=== PATIENT | male | born 1960 | race Caucasian/White ===

== ENCOUNTER 2024-03-24 21:20 | Inpatient (IN) | payer MEDICARE, SELFPAY ==
[2024-03-24 18:40] VITALS: BP 176/95
[2024-03-24 19:04] LABS: % Basophils 0.2 % (0-2); % Eosinophils 0.1 % (0-6); % Immature Granulocytes 0.7 % (0-0.5); % Lymphocytes 4.9 % (20.5-51.1); % Monocytes 9.4 % (1.7-9.3); % Neutrophils 84.7 % (42.2-75.2); Absolute Immature Granulocytes 0.1 10^3/uL (0-0.05); Absolute Monocytes 1.8 10^3/uL (0.1-0.6); Absolute Neutrophils 16.3 10^3/uL (1.4-6.5); Hematocrit 46.1 % (39.0-52.0); Hemoglobin 16.9 g/dL (13.0-18.0); Mean Corp Hgb Conc. 36.7 g/dL (33.0-37.0); Mean Corpuscular Hgb 31.5 pg (27.0-31.0); Mean Platelet Volume 11.5 fL (7.4-10.4); Nucleated Red Blood Cells % 0 % (-); Platelet Count 116 10^3/uL (130-400); Red Blood Cell Count 5.36 10^6/uL (4.70-6.10); Red Cell Dist. Width 13.3 % (11.5-14.5); White Blood Cell Count 19.3 10^3/uL (4.8-10.8)
[2024-03-24 19:22] LABS: COVID-19 Antigen Negative (Negative)
[2024-03-24 19:26] LABS: ALT (SGPT) 31 U/L (0-50); AST (SGOT) 98 U/L (17-59); Albumin 4.7 g/dl (3.5-5.0); Alkaline Phosphatase 84 U/L (38-126); Blood Urea Nitrogen 13 mg/dl (9-20); Calcium 9.6 mg/dl (8.4-10.2); Carbon Dioxide 25 mmol/L (22-30); Chloride 99 mmol/L (98-107); Glucose 126 mg/dl (70-99); Potassium 4.4 mmol/L (3.5-5.1); Sodium 135 mmol/L (135-145); Total Bilirubin 3.2 mg/dl (0.2-1.3); Total Protein 7.3 g/dl (6.3-8.2); eGFR > 60.00
[2024-03-24 19:30] LABS: Lipase 1802 U/L (23-300)
[2024-03-24 19:37] LABS: NT-proBNP 1270 pg/ml; Troponin I < 0.012 ng/ml
--- NOTE | 2024-03-24 19:49 | EDRN ---
Pt has been having chest pains that started last night. Pt felt like his esophagus was on fire initially then he sat down and had cold sweats 1-2 hours. Pt was unable to sleep. This morning, pt took some Tums for indigestion and 1 325mg aspirin.
Pt took 2 tylenol in the morning, 2 in the afternoon and pepto tablets. Pt says he laid around, unable to sleep in pain all day. Covid test at home was negative. Pt belching a lot. Nausea, no vomiting. Pain is in epigastric area and radiates
around L side into back. No sob, fever/cough, urinary symptoms, weakness. Pt feels light headed and his legs are 'wobbly.' No appetite. Pt has been sipping on water throughout the day. Pt had similar symptoms last year that went away quickly.
[2024-03-24 20:00] VITALS: BP 136/99
--- NOTE | 2024-03-24 20:09 | ED.GENMED ---
History of Present Illness
General
Chief Complaint: Chest Pain
Source: patient
Exam Limitations: none
Time Seen by Provider: 03/24/24 19:59
History of Present Illness
History of Present Illness:
This is a 64 year old male that comes in with epigastric pain. States that he started with pain last night. States that he has been belching. States that he sat down for a while and he was sweating. Then 1 hour later he felt slightly betted but this
it came back. States that he couldn't sleep all night. States that he has had chills, nausea, loose stool and lightheaded. Denies any fever, chest pain, SOB, vomiting, headache, urinary burning.
Past History
Past History
ED Past Medical History: None; Negative Asthma, HTN, Hypercholesterolemia or NIDDM
ED Past Surgical History: Orthopedic (Right knee surgery, ) and Other (Skin graft left ankle)
Social History
Tobacco: Former smoker
Alcohol: Daily (Beer 6 pack or more)
Personal:
Living: with family
Review of Systems
Review of Systems
All Other Systems: ROS reviewed and negative except as documented in HPI and ROS
Constitutional: Reports night sweats and chills
EENT: Reports no symptoms
Respiratory: Reports no symptoms; Denies cough or trouble breathing
Cardiac: Reports no symptoms; Denies chest pain
ABD/GI: Reports abdominal pain and nausea; Denies vomiting or diarrhea
: Reports no symptoms; Denies dysuria, frequency or urgency
Musculoskeletal: Reports no symptoms
Skin: Reports no symptoms
Neurological: Reports other (Lightheaded); Denies dizzy or headache
Psychiatric: Reports no symptoms
Phy Exam
General Physical Exam
General Presentation: no apparent distress
General age: appears stated age
General Skin: warm and dry
General Habitus: normal
General Mental: alert
General Hydration: appears well hydrated
ENT Exam
ENT Exam: TM's normal, pharynx normal and neck supple
Eye Exam
Eye Exam: EOMI
Cardiovascular Exam
Cardiovascular Exam: regular rate/rhythm, no edema and normal peripheral pulses
Pulmonary Exam
Pulmonary Exam: lungs clear, no respiratory distress, no rales, chest non tender, no crackles, no rhonchi, no wheezing and no cough
Gastrointestinal Exam
Gastrointestinal Exam: normal bowel sounds, soft, no organomegaly, no pulsatile mass, non distended and tender (Epigastric area with palpation)
Musculoskeletal Exam
Musculoskeletal Exam: full ROM
Skin Exam
Skin Exam: normal color, warm/dry, no rash and no petechia
Psychiatric Exam
Psychiatric Exam: normal mood/affect
Scores
Heart Score for Chest Pain Patients
STEMI patient?: Not applicable
Course
Orders/Labs/Results
Orders:
Orders
03/24/24 18:44
CR Chest - 2 Views Urgent
Comment:
Reason For Exam: chest pain
03/24/24 18:46
ECG [Electrocardiogram (*1)] Urgent
Reason for Study: Chest Pain
EKG- Treatment ONCE
03/24/24 18:49
Alcohol Urgent
COVID-19 Antigen Urgent
Source: Nasal Swab
Complete Blood Count/With Diff Urgent
Comprehensive Metabolic Panel Urgent
Lipase Urgent
NT-proBNP Urgent
Troponin I Urgent
03/24/24 20:08
0.9% Sodium Chloride 1000 ml [Nss] 1,000 ml IV BOLUS
HYDROmorphone [Dilaudid] 0.5 mg IV NOW STA
Ondansetron Injectable [Zofran] 4 mg IV NOW STA
03/24/24 20:17
CT Abd/pelvis W Iv Cont Urgent
Comment:
Reason For Exam: Upper abd pain
03/24/24 20:18
Piperacillin/Tazo 3.375 Gram [Zosyn] 3.375 gram in 50 ml IV NOW
03/24/24 20:39
Add On- LAB Urgent
Tests Added?: alcohol level
03/24/24 20:48
Admit/Transfer Patient As Directed
Co-Sign Provider:
Level of Care: Inpatient admission
Assign to:: Telemetry
Physician / Group: jonathan young
Diagnosis: actue pancreatitis, alcohol abuse , thrombocytopenia
Reason for Telemetry: Arrhythmia
Date to Stop Telemetry: 03/27/24
Time to Stop Telemetry: 11:00
Reason for Hospitalization: actue pancreatitis, alcohol abuse , thrombocytopenia
Expected length of stay greater than two midnights?: Yes
ELOS- Estimated Length of Stay in days: 5
I certify the patient meets the requirements for IP care: Yes
03/24/24 20:49
Code Status As Directed
Resuscitation Status: Full Code
03/24/24 20:51
PRN Pain Medication Management As Directed
May give lesser potent ordered pain med per pt: Yes
preference::
Protocol:: Medication orders for pain may be administered in a
manner that supports deferring to patient preference
when the pt is:
- Requesting an ordered lesser potent pain medication.
Least to most potent pain medications are defined
as: acetaminophen < NSAID < tramadol < opioids
(morphine, oxycodone, hydromorphone).
- Requesting a lesser dose of the same medication IF
ORDERED.
- Requesting a less intrusive route of administration
if both routes are prescribed by the provider (PO <
IV).
03/24/24 21:42
Urinalysis Routine
Date Specimen was Collected: 03/24/24
Time Specimen was Collected: 21:40
Urine Drug Abuse Screen Routine
Date Specimen was Collected: 03/24/24
Time Specimen was Collected: 21:40
03/24/24 22:00
Flush (0.9% Sodium Chloride) [Flush (Nss)] See Dose Instructions IV PER PROTOCOL
03/24/24 22:46
0.9% Sodium Chloride 1000 ml [Nss] 1,000 ml IV 125 mls/hr
0.9% Sodium Chloride [Nss (Preservative Free)] See Protocol IV PRN PRN
FOLic ACID [Folvite] 1 mg 0.9% Sodium Chloride 50 ml [Nss] 50 ml IV DAILYPRN
Lorazepam [Ativan] 1 mg IV Q1HPRN PRN
Lorazepam [Ativan] 1 mg PO Q2HPRN PRN
Lorazepam [Ativan] 2 mg IV Q1HPRN PRN
03/24/24 22:46
Case Management Consult Once
Case Management Consult: Other
Comment: Substance abuse counseling
DIETARY CONSULT Routine
Reason for Consult: Nutrition support, possible refeeding guidelines
Alcohol Urgent
B-Hydroxybutyrate Urgent
GGTP Urgent
Magnesium Urgent
PTT Urgent
Phosphorus Urgent
Prothrombin Time Urgent
Activity As Directed
Activity Level: As Tolerated
Intake/ Output As Directed
Frequency: Per unit guidelines
MSAS SCORE As Directed
MSAS Score 0-4: Repeat MSAS every 2 hours until 0-4 for three consecutive assessments, then every 4 hours x 48
hours.
MSAS Score 5-7: For MILD withdrawl symptoms. Repeat MSAS and RASS every 2 hours
MSAS Score 8-11: For MODERATE withdrawal symptoms. Repeat MSAS and RASS every 1 hour. Consider ICU or IMU
level of care.
MSAS Score > 11: For SEVERE withdrawal symptoms. Repeat MSAS and RASS every 1 hour. Notify provider, consider
ICU level of care.
MSAS Additional Instructions: If no improvement or no decrease in score from severe to moderate within 12
hours, consult psychiatry
MSAS Notify Provider: Notify provider if patient requires more than 10 mg of Lorazepam in eight hour period.
Vital Signs As Directed
Frequency: Per unit guidelines
Ot Eval And Treat Routine
Pt Eval And Treat Routine
Activity Level: As Tolerated
DX Deep Vein Thrombosis Video Routine
03/25/24 00:00
Thiamine Injection 200 mg IV Q8
03/25/24 07:36
Complete Blood Count/With Diff IN AM
Comprehensive Metabolic Panel IN AM
03/25/24 08:00
FOLic ACID [Folvite] 1 mg PO DAILY
Pantoprazole [Protonix IV] 40 mg IV DAILY
03/25/24 18:00
Enoxaparin Sodium [Lovenox] 40 mg SC QPM
03/26/24 06:52
Complete Blood Count/With Diff IN AM
Comprehensive Metabolic Panel IN AM
03/27/24 06:00
Complete Blood Count/With Diff IN AM
Comprehensive Metabolic Panel IN AM
03/27/24 11:00
DC Protocol for Telemetry ONCE
03/28/24 06:00
Complete Blood Count/With Diff IN AM
Comprehensive Metabolic Panel IN AM
03/28/24 08:00
Thiamine HCl [Vitamin B1] 100 mg PO BID
Abnormal Lab Results
03/24/24
18:49
WBC 19.3 H 10^3/uL
(4.8-10.8)
MCH 31.5 H pg
(27.0-31.0)
Plt Count 116 L 10^3/uL
(130-400)
MPV 11.5 H fL
(7.4-10.4)
Abs Immat Gran (auto) 0.1 H 10^3/uL
(0-0.05)
Absolute Neuts (auto) 16.3 H 10^3/uL
(1.4-6.5)
Absolute Lymphs (auto) 1.0 L 10^3/uL
(1.2-3.4)
Absolute Monos (auto) 1.8 H 10^3/uL
(0.1-0.6)
Immature Gran % 0.7 H %
(0-0.5)
Neutrophils % 84.7 H %
(42.2-75.2)
Lymphocytes % 4.9 L %
(20.5-51.1)
Monocytes % 9.4 H %
(1.7-9.3)
Glucose 126 H mg/dl
(70-99)
Total Bilirubin 3.2 H mg/dl
(0.2-1.3)
AST 98 H U/L
(17-59)
Lipase 1802 H* U/L
(23-300)
03/24/24 18:49
03/24/24 18:49
Leukocytosis, Thrombocytopenia, hyperglycemia, Total stiven elevated, AST elevation. Lipase elevated (pancreatitis), Troponin <0.012, Pro-BNP 1270, COVID negative. Alcohol none detected. Urine Drug negative.
Vital Signs
Initial and Last Documented VS:
Initial Vital Signs
Temp Pulse Resp BP Pulse Ox
100.0 F 97 18 176/95 98
03/24/24 18:40 03/24/24 18:40 03/24/24 18:40 03/24/24 18:40 03/24/24 18:40
Last Documented Vital Signs
Temp Pulse Resp BP Pulse Ox
98.9 F 70 18 127/79 97
03/26/24 16:21 03/26/24 16:21 03/26/24 16:21 03/26/24 16:21 03/26/24 16:21
MDM/Problems Addressed
Differential Diagnosis Includes:
Gastritis, Pancreaetitis,
MDM/Problems Addressed:
This is a 64 year old male that comes in with c/o upper abd pain. States that this started last night. States that he has had chills, sweating, nausea and light headache.
Will get labs, Ultrasound, IV fluids and pain medication. Explained to patient that he has pancreatitis and will be admitted.
Chronic conditions affecting care:
NA
Acute Exacerbation and/or Progression of Chronic Illness:
NA
*Radiology
Radiology exam reviewed: radiology read reviewed (CT-There is a complex predominantly low density (35 hounsfield units) mass at the posterior aspect of the tail of the pancreas which measures approximately 5.5 X 9.5 X 8.0cm in A: transverse and
craniocaudal dimensions respectively. Differential diagnosis for this mass included a complex ), all reviewed NAD by ED Provider (CT cont- complex pseudocyst and mucinous neoplasm. MRI is recommended for further evaluation. There is inflammatoary
stranding/edema around the tail of the pancreas consistent with acute pancreatitis. There is a 5.5cm infrarenal abdominal aortic aneurysm with eccentric thrombus which terminates at ) and other (CT cont- at the aortic bifurcation. )
*Pulse Oximetry
Patient hypoxic: no
*EKG
Interpreted by ED Provider?: Yes
Heart Rate: 86
Rate: normal
Rhythm: sinus
[place]: left axis deviation
Interval: normal interval
QRS Pattern: normal QRS
Ischemia: no ischemia
*Dryer Operator Interpretation
Rate: normal
Heart Rate: 96
Rhythm: sinus
*Critical Care Note
Total Time (30-74mins, 75-104mins- exclusive of procedures): Not Applicable
ED Attending Note
-
Portions of this chart may have been created with voice recognition software.� Occasional wrong word or��sound alike� substitutions may have occurred due to the inherent limitations of voice recognition software.
Discharge Plan
Departure
Patient Disposition: Admit
Date of Disposition: 03/24/24
Time of Disposition: 20:21
Admit to: Med/Surg
Presentation/result/management discussed w/ accepting MD/DO: Hospitalist
Patient with high blood pressure during this ER visit?: Yes
Covid-19: Negative COVID-19
Discharge Problem:
Acute pancreatitis
Interventions
Interventions:
*Risk Screen - Suicide Last Done: 03/24/24 18:40
*General Assessment Last Done: 03/24/24 21:00
*Neglect/Abuse Screening Last Done: 03/24/24 18:40
ED- Fall Risk Assessment Last Done: 03/24/24 22:41
*ED COVID-19 Vaccine History Last Done: 03/24/24 19:49
*Nursing Disposition Last Done: 03/24/24 22:41
ED- Cardiac Assessment Last Done: 03/24/24 20:01
Discharge Date and Time
Discharge Date/Time: 03/24/24 22:41
[2024-03-24] MEDS: DILAUDID 0.5 MG IV (20:22)
[2024-03-24] MEDS: NSS 1000 IV ×2 (20:23→23:29)
[2024-03-24] MEDS: ZOFRAN 4 MG IV (20:23)
[2024-03-24] MEDS: ZOSYN 50 IV (20:25)
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
[2024-03-24 21:11] LABS: Alcohol None Detected
[2024-03-24 21:35] VITALS: BP 149/97
[2024-03-24 22:00] VITALS: BP 162/86
[2024-03-24 22:02] LABS: Amphetamines Negative (Negative); Barbiturates Negative (Negative); Benzodiazepines Negative (Negative); Buprenorphine Negative (Negative); Cocaine Negative (Negative); Marijuana Negative (Negative); Methadone Negative (Negative); Methamphetamines Negative (Negative); Opiates Negative (Negative); Phencyclidine Negative (Negative); Tricyclic Antidepressants Negative (Negative)
[2024-03-24 22:18] LABS: Urine Albumin Trace (Neg - Trace); Urine Bilirubin Negative (Negative); Urine Character Clear (Clear); Urine Color Yellow; Urine Glucose Negative (Negative); Urine Ketone Trace (Negative); Urine Leukocyte Negative (Negative); Urine Nitrite Negative (Negative); Urine Occult Blood 4+ (Negative); Urine Urobilinogen Negative (Neg - 1+)
[2024-03-24 22:33] LABS: Urine Mucus Moderate; Urine White Cell 0-2 /HPF (0-5)
--- NOTE | 2024-03-24 22:38 | W.PN.UPDATE ---
Update Note
Progress Note Update
This is an addendum to the H&P written by Debbie Maria on 03/24/2024. Patient seen and examined independently with ELECTRICAL LABORATORY TECHNICIAN.
64-year-old male past medical history of alcohol use disorder here with alcoholic pancreatitis. Lipase of 1800. Leukocytosis on labs. CT abdomen pelvis shows complex mass at the posterior aspect of the tail the pancreas which could be complex
pseudocyst versus mucinous neoplasm. N.p.o., IV fluids, Zofran, Dilaudid, Protonix. GI consulted. Thiamine and folate, alcohol withdrawal protocol.
[2024-03-24 23:11] VITALS: BP 179/107; BMI 30.3
[2024-03-24] MEDS: THIAMINE INJECTION 200 MG IV (23:29)
[2024-03-25] VITALS (9 sets, daily range): BP systolic 131–153; BP diastolic 78–92; PULSE 85; O2SAT 96
[2024-03-25] MEDS: DILAUDID 0.25 MG IV ×3 (00:19→20:44)
--- NOTE | 2024-03-25 00:30 | PTCARENOTE ---
Receive pt from ER. Pt alert oriented X3, calm in no distress. Pt assist X1 to his bed, steady on his feet. Pt oriented to the room, call romero within reach. Pt reports tenderness in the left epigastric area and left upper quadrant. The pain is 5/10.
Pt on NSR on telemonitor. BP high at the [id number]=404/107, HR=86, T=99.4, SpO2=99% on RA. MSAS=3, pt reports that his last drink was yesterday. Pt denies any alcohol withdraw in the past. Pt is strict NPO except for meds. IVFs infusing as per
order. TRUST VAULT CUSTODIAN (Radha) made aware about pt's pain, ordered Dilaudid 0.25mg X1. Dilaudid given as per order. Pt resting comfortably in his bed. BP rzvisiohj=313/92, HR=91. Will continue to monitor the pt.
[2024-03-25 00:33] LABS: INR 1.21; PT 15.1 Sec (11.4-14.6)
[2024-03-25 00:34] LABS: APTT 32.5 Sec (23.4-35.0)
[2024-03-25 00:49] LABS: Magnesium 1.7 mg/dl (1.6-2.3); Phosphorus 3.2 mg/dl (2.5-4.5)
[2024-03-25 01:04] LABS: GGTP 48 U/L (15-73)
[2024-03-25 01:06] LABS: Alcohol None Detected
[2024-03-25 01:11] LABS: B-Hydroxybutyrate 0.11 mmol/L (0.02-0.27)
[2024-03-25] MEDS: NSS 1000 IV (06:29)
[2024-03-25 08:34] LABS: ALT (SGPT) 21 U/L (0-50); AST (SGOT) 48 U/L (17-59); Albumin 3.4 g/dl (3.5-5.0); Alkaline Phosphatase 64 U/L (38-126); Blood Urea Nitrogen 13 mg/dl (9-20); Calcium 8.4 mg/dl (8.4-10.2); Carbon Dioxide 23 mmol/L (22-30); Chloride 104 mmol/L (98-107); Estimated Creatinine Clearance > 125 ml/min; Glucose 108 mg/dl (70-99); Potassium 3.8 mmol/L (3.5-5.1); Sodium 137 mmol/L (135-145); Total Protein 5.8 g/dl (6.3-8.2); eGFR > 60.00
[2024-03-25 08:37] LABS: % Basophils 0.1 % (0-2); % Eosinophils 0.3 % (0-6); % Immature Granulocytes 0.5 % (0-0.5); % Lymphocytes 6.7 % (20.5-51.1); % Monocytes 12.1 % (1.7-9.3); % Neutrophils 80.3 % (42.2-75.2); Absolute Immature Granulocytes 0.1 10^3/uL (0-0.05); Absolute Monocytes 1.8 10^3/uL (0.1-0.6); Absolute Neutrophils 11.9 10^3/uL (1.4-6.5); Hematocrit 42.2 % (39.0-52.0); Mean Corp Hgb Conc. 35.5 g/dL (33.0-37.0); Mean Corpuscular Hgb 31.7 pg (27.0-31.0); Mean Corpuscular Volume 89.2 fL (80.0-94.0); Nucleated Red Blood Cells % 0 % (-); Red Blood Cell Count 4.73 10^6/uL (4.70-6.10); Red Cell Dist. Width 13.4 % (11.5-14.5); White Blood Cell Count 14.8 10^3/uL (4.8-10.8)
[2024-03-25] MEDS: NSS (PRESERVATIVE FREE) 10 ML IV (08:47)
[2024-03-25] MEDS: FLUSH (NSS) 1 FLUSH IV ×3 (08:47→16:35)
[2024-03-25] MEDS: PROTONIX IV 40 MG IV (08:47)
[2024-03-25] MEDS: FOLVITE 1 MG PO (08:47)
[2024-03-25] MEDS: THIAMINE INJECTION 200 MG IV ×2 (08:47→16:35)
--- NOTE | 2024-03-25 08:52 | W.PN.UPDATE ---
Update Note
Progress Note Update
CT of the abdomen and pelvis was reviewed. Patient currently admitted with alcohol pancreatitis. On CT scan he has an infrarenal abdominal aortic aneurysm. Also has a cystic lesion involving the pancreas which is either a pseudocyst or mucinous
neoplasm. He is currently being treated for pancreatitis and workup is ongoing for this mass.
He is a stent graft candidate anatomically. I have asked that the medical team obtain a CT angiogram of the abdomen and pelvis for possible surgical planning. We can then continue surgical discussions as an outpatient once he has recovered from
this episode and we have a plan for his pancreas.
Please call with additional questions or concerns.
Patient should follow-up with me in the office after discharge for his AAA.
Weston Fabian III, MD
[facility] Vascular Surgery
[phone] (bljn)
[2024-03-25] MEDS: ASPIR LOW (ENTERIC COATED) 81 MG PO (09:09)
--- NOTE | 2024-03-25 11:27 | W.PN.HOSP.TC ---
Today's Communication/Plan
-
ivf
mri abd w/w/out contrast
pain control
asa 81
ct angio a/p
monitor cbc
gi, vascular recs
Assessment / Plan
Assessment / Plan
Physical Exam
General: Conversant; No Fever or Chills
HEENT: NormoCephalic, Anicteric, Moist mucous membranes, PERRLA, [place] Conjunctivae and No Ptosis
Respiratory: Clear; No Wheezes, Rales or Rhonchi
Cardiac: S1/S2 and Regular Rhythm; No Murmur, Rub, Gallop or Peripheral Edema
GI: Soft, Normal Bowel Sounds, Tender (Left upper quadrant), Distended and No Hepatosplenomegaly
Rectal: Deferred by Provider
Genito-urinary: Deferred by me
Musculoskeletal: No Clubbing and No Edema
Skin: Warm and Dry; No Rash or Jaundice
Neuro: AO x 3, No Motor Deficits, Nonfocal/grossly intact, Cranial Nerves Intact and No Sensory Deficits; No Slurred Speech, Facial Droop, Tremors or Sedated
Psych: Calm
#Acute pancreatitis 2/2 alcohol abuse
#SIRS-most likely secondary to noninfectious etiology
White count trending down, monitor fever curve
Continue IV fluids
Pain control
Continue IV Zofran
NPO
MRI abdomen ordered
Alcohol cessation
#Hyperbilirubinemia
� monitor
-add on direct bili
-mri abd
#Pancreatic complex pseudocyst and mucinous neoplasm.
-MRI abdomen
#5.5 cm infrarenal abdominal aortic aneurysm with eccentric thrombus which terminates at the aortic bifurcation
-vascular consulted
-asa 81 for thrombus
-stent graft candidate anatomically
-CT Angio A/P for surgical planning
#Alcohol abuse
Check alcohol level
-MSAS screen with protocol
--IV thiamine, IV folate
-Follow CMP
#Thrombocytopenia likely secondary to alcohol abuse
PLT 116 no prior labs
#Former smoker
40-year 1 pack a day quit October 09, 2022
DVT prophylaxis
Subcu Lovenox
Full code
Anticipated Discharge: > 48 hours
Subjective/Interval History
-
Date of Service: March 25, 2024
Still in pain, mild epigastric
Objective Data
-
Labs:
Laboratory Results
03/25/24 03/25/24
00:14 07:36
WBC 14.8 H
Hgb 15.0
Hct 42.2
Plt Count
PT 15.1 H
INR 1.21
APTT 32.5
Sodium 137
Potassium 3.8
Chloride 104
Carbon Dioxide 23
BUN 13
Creatinine 0.6 L
Glucose 108 H
Calcium 8.4
Total Bilirubin 2.0 H D
AST 48
ALT 21
Alkaline Phosphatase 64
Vital Signs:
Vital Signs
Temp Pulse Resp BP Pulse Ox
98.2 F 86 20 147/86 95
03/25/24 07:30 03/25/24 07:30 03/25/24 07:30 03/25/24 07:30 03/25/24 08:44
I&O
03/24/24 03/25/24 03/26/24
06:59 06:59 06:59
Intake Total 1000 / 1000
Output Total 1100 / 1100
Balance -100 / -100
Review of Systems
-
History Source: Patient
All other systems: Not reviewed unless documented
Data Reviewed
-
Diagnostic Radiology: Image personally visualized and interpreted and Report Reviewed by me
CT Scan: Image personally visualized and interpreted and Report Reviewed by me
Labs: Labs Reviewed by me
[2024-03-25 12:29] LABS: Direct Bilirubin 0.3 mg/dl (0.0-0.4)
[2024-03-25] MEDS: LR 1000 IV ×2 (12:34→21:49)
--- NOTE | 2024-03-25 13:03 | CON.GI ---
Consultation
-
Date/Time Consultation Requested: 03/25/2024
Date/Time Consultation Performed: 03/25/2024
Performing Provider: Iban Xie
Reason for Consultation: acute pancreatitis, lesion in tail of pancreas
Medical History
Chief Complaint / HPI
Chief Complaint: acute pancreatitis, lesion in tail of pancreas
History of Present Illness:
Patient is a 64-year-old male presenting with acute onset epigastric pain and associated nausea. He has history of alcohol abuse drinking 6 packs of beer on almost daily basis sometimes also drinking about 2 shots of whiskey/vodka. He denies
vomiting. Never had history of pancreatitis. Admits to [id number] history of smoking but quit on 09/2023. No prior history of jaundice.
Past Medical History
Past Medical History: Other
Past Surgical History: Other
Social History
Tobacco: Former Smoker
Alcohol: Daily
Allergies / Home Medications
Allergy/AdvReac Type Severity Reaction Status Date / Time
Penicillins Allergy Unknown Verified 03/24/24 18:40
�Medication �Instructions �Recorded
No Meds [No Current Medications] 03/24/24
Review of Systems
Vital Signs
Temp Pulse Resp BP Pulse Ox
98.5 F 81 21 148/84 97
03/25/24 11:00 03/25/24 11:00 03/25/24 11:00 03/25/24 11:00 03/25/24 11:00
Physical Exam
Exam
General: Well Developed and Well Nourished
HEENT: Normocephalic
Respiratory: Clear
Cardiac: S1/S2
GI: Soft, Non Distended and Tender
Results
WBC 14.8 10^3/uL (4.8-10.8) H 03/25/24 07:36
Hgb 15.0 g/dL (13.0-18.0) 03/25/24 07:36
Hct 42.2 % (39.0-52.0) 03/25/24 07:36
MCV 89.2 fL (80.0-94.0) 03/25/24 07:36
Plt Count 10^3/uL (130-400) 03/25/24 07:36
Absolute Neuts (auto) 11.9 10^3/uL (1.4-6.5) H 03/25/24 07:36
PT 15.1 Sec (11.4-14.6) H 03/25/24 00:14
INR 1.21 03/25/24 00:14
APTT 32.5 Sec (23.4-35.0) 03/25/24 00:14
Sodium 137 mmol/L (135-145) 03/25/24 07:36
Potassium 3.8 mmol/L (3.5-5.1) 03/25/24 07:36
Chloride 104 mmol/L (98-107) 03/25/24 07:36
Carbon Dioxide 23 mmol/L (22-30) 03/25/24 07:36
BUN 13 mg/dl (9-20) 03/25/24 07:36
Creatinine 0.6 mg/dL (0.7-1.3) L 03/25/24 07:36
Calcium 8.4 mg/dl (8.4-10.2) 03/25/24 07:36
Total Bilirubin 2.0 mg/dl (0.2-1.3) H D 03/25/24 07:36
AST 48 U/L (17-59) 03/25/24 07:36
ALT 21 U/L (0-50) 03/25/24 07:36
Alkaline Phosphatase 64 U/L (38-126) 03/25/24 07:36
Lipase 1802 U/L (23-300) H* 03/24/24 18:49
Diagnostic Image Results:
Prior GI Procedures:
EGD:
Colonoscopy:
Assessment / Plan
-
64-year-old male presenting with alcohol induced acute pancreatitis with abnormal finding on abdominal CT.
Impression / Rec:
1. Acute pancreatitis with lesion seen in TOP - Patient was admitted with acute onset epigastric abdominal pain with associated nausea and found to have lipase of 1800s and CT demonstrating stranding around the tail of pancreas consistent with
alcohol induced pancreatitis. Patient drinks 6 packs of beer almost daily and sometimes hard liquor as well. [id number] of smoking history although he quit on 09/2023. Denies prior history of pancreatitis or jaundice. CT also showed complex
fluid density mass in the tail of pancreas measuring 5.5 x 9.5 x [address] was reviewed by me. This may be a complex pseudocyst versus cystic lesion. Agree with further evaluation with MRI. Pending MRI results, may need further evaluation
with EUS. CLD for now.
Total Time Spent with Patient (in minutes): 55
-
-
Thank you for consultation and allowing me to participate in the patient's care. Please call the international tax manager GI physician during the after hours with any questions or concerns.
[2024-03-25 13:06] LABS: Hematocrit 39.6 % (39.0-52.0); Hemoglobin 14.3 g/dL (13.0-18.0); Mean Corp Hgb Conc. 36.1 g/dL (33.0-37.0); Mean Corpuscular Hgb 31.6 pg (27.0-31.0); Mean Corpuscular Volume 87.6 fL (80.0-94.0); Red Blood Cell Count 4.52 10^6/uL (4.70-6.10); Red Cell Dist. Width 13.8 % (11.5-14.5); White Blood Cell Count 15.5 10^3/uL (4.8-10.8)
[2024-03-25 13:17] LABS: Mean Platelet Volume 11.6 fL (7.4-10.4); Platelet Count 58 10^3/uL (130-400)
--- NOTE | 2024-03-25 16:32 | PTCARENOTE ---
Pt AAO x3,WEIR well, OOB in room, lara well. VSS. Telemetry:NSR. On room air- pulse ox 99%, no SOB noted. Abd large, sl tender Lt med/lower abd; BS (+). Lara clear liquid diet. Voiding in BR without difficulty. IVF's RL @ 150 ml/hr infusing via
Rt upper forearm site without sx of infiltration. Resting in bed at present, no c/o. Will continue to monitor.
[2024-03-25] MEDS: LOVENOX 40 MG SC (17:28)
[2024-03-26] MEDS: THIAMINE INJECTION 200 MG IV ×3 (01:15→17:06)
[2024-03-26 03:54] VITALS: BP 151/80
[2024-03-26] MEDS: LR 1000 IV ×4 (05:27→22:00)
[2024-03-26 08:23] VITALS: BP 132/83
[2024-03-26 08:33] LABS: % Basophils 0.2 % (0-2); % Immature Granulocytes 0.6 % (0-0.5); % Lymphocytes 9.9 % (20.5-51.1); % Monocytes 12.9 % (1.7-9.3); % Neutrophils 75.4 % (42.2-75.2); Absolute Eosinophils 0.1 10^3/uL (0-0.7); Absolute Immature Granulocytes 0.1 10^3/uL (0-0.05); Absolute Lymphocytes 1.1 10^3/uL (1.2-3.4); Absolute Monocytes 1.4 10^3/uL (0.1-0.6); Absolute Neutrophils 8.2 10^3/uL (1.4-6.5); Hematocrit 34.5 % (39.0-52.0); Hemoglobin 12.4 g/dL (13.0-18.0); Mean Corp Hgb Conc. 35.9 g/dL (33.0-37.0); Mean Corpuscular Hgb 31.9 pg (27.0-31.0); Mean Corpuscular Volume 88.7 fL (80.0-94.0); Mean Platelet Volume 12.1 fL (7.4-10.4); Nucleated Red Blood Cells % 0 % (-); Platelet Count 58 10^3/uL (130-400); Red Blood Cell Count 3.89 10^6/uL (4.70-6.10); Red Cell Dist. Width 13.8 % (11.5-14.5); White Blood Cell Count 10.9 10^3/uL (4.8-10.8)
[2024-03-26 08:38] LABS: ALT (SGPT) 14 U/L (0-50); AST (SGOT) 22 U/L (17-59); Albumin 2.8 g/dl (3.5-5.0); Alkaline Phosphatase 70 U/L (38-126); Blood Urea Nitrogen 10 mg/dl (9-20); Calcium 8.2 mg/dl (8.4-10.2); Carbon Dioxide 25 mmol/L (22-30); Chloride 104 mmol/L (98-107); Estimated Creatinine Clearance > 125 ml/min; Glucose 93 mg/dl (70-99); Potassium 3.4 mmol/L (3.5-5.1); Sodium 135 mmol/L (135-145); Total Bilirubin 1.3 mg/dl (0.2-1.3); eGFR > 60.00
[2024-03-26] MEDS: PROTONIX IV 40 MG IV (08:47)
[2024-03-26] MEDS: NSS (PRESERVATIVE FREE) 10 ML IV (08:47)
[2024-03-26] MEDS: ASPIR LOW (ENTERIC COATED) 81 MG PO (08:48)
[2024-03-26] MEDS: FOLVITE 1 MG PO (08:48)
[2024-03-26 12:00] VITALS: BP 127/76
--- NOTE | 2024-03-26 12:00 | W.PN.HOSP.TC ---
Today's Communication/Plan
-
adv to full liquid diet
Assessment / Plan
Assessment / Plan
Physical Exam
General: Conversant; No Fever or Chills
HEENT: NormoCephalic, Anicteric, Moist mucous membranes, PERRLA, [place] Conjunctivae and No Ptosis
Respiratory: Clear; No Wheezes, Rales or Rhonchi
Cardiac: S1/S2 and Regular Rhythm; No Murmur, Rub, Gallop or Peripheral Edema
GI: Soft, Normal Bowel Sounds, Tender (Left upper quadrant), Distended and No Hepatosplenomegaly
Rectal: Deferred by Provider
Genito-urinary: Deferred by me
Musculoskeletal: No Clubbing and No Edema
Skin: Warm and Dry; No Rash or Jaundice
Neuro: AO x 3, No Motor Deficits, Nonfocal/grossly intact, Cranial Nerves Intact and No Sensory Deficits; No Slurred Speech, Facial Droop, Tremors or Sedated
Psych: Calm
#Acute pancreatitis 2/2 alcohol abuse
#Necrotizing pancreatitis
#10 Centimeter acute necrotic collection posterior to the pancreatic body and tail
#SIRS-most likely secondary to noninfectious etiology
White count trending down, monitor fever curve
Continue IV fluids
Pain control
Continue IV Zofran
Tolerating clear liquids, advance to full liquid diet
MRI abdomen ordered
Alcohol cessation
#Hyperbilirubinemia
� monitor
-resolving
#5.5 cm infrarenal abdominal aortic aneurysm with eccentric thrombus which terminates at the aortic bifurcation
-vascular consulted
-asa 81 for thrombus
-stent graft candidate anatomically
-CT Angio A/P for surgical planning performed
� Follow-up vascular outpatient
#Hypokalemia
� Monitor and replete
#Alcohol abuse
Check alcohol level
-MSAS screen with protocol
--IV thiamine, IV folate
-Follow CMP
#Thrombocytopenia likely secondary to alcohol abuse
-ctm
#Former smoker
40-year 1 pack a day quit October 09, 2022
DVT prophylaxis
Subcu Lovenox
Full code
Anticipated Discharge: 24 - 48 hours
Subjective/Interval History
-
Date of Service: March 26, 2024
Pain is improved, tolerating clear liquid diet well
Objective Data
-
Labs:
Laboratory Results
03/26/24
06:52
WBC 10.9 H
Hgb 12.4 L
Hct 34.5 L
Plt Count 58 L
Sodium 135
Potassium 3.4 L
Chloride 104
Carbon Dioxide 25
BUN 10
Creatinine 0.7
Glucose 93
Calcium 8.2 L
Total Bilirubin 1.3
AST 22
ALT 14
Alkaline Phosphatase 70
Vital Signs:
Vital Signs
Temp Pulse Resp BP Pulse Ox
98.2 F 76 18 132/83 98
03/26/24 08:23 03/26/24 08:23 03/26/24 08:23 03/26/24 08:23 03/26/24 08:23
I&O
03/25/24 03/26/24 03/27/24
06:59 06:59 06:59
Intake Total 1000 / 1000 4360 / 4360
Output Total 1100 / 1100 980 / 980
Balance -100 / -100 3380 / 3380
Review of Systems
-
History Source: Patient
All other systems: Not reviewed unless documented
Data Reviewed
-
Diagnostic Radiology: Image personally visualized and interpreted and Report Reviewed by me
CT Scan: Image personally visualized and interpreted and Report Reviewed by me
Labs: Labs Reviewed by me
--- NOTE | 2024-03-26 12:21 | CM ---
CM reviewed patient's chart. Spoke with patient at bedside. CM introduced self and role. CM consult placed for BCARES. CM explained what BCARES was. CM explained what BCARES was. Patient stated that he was going to quit on his own, so he didn't need
to talk to 'nobody'.
PCP: Dr. Amish Jolley
Pharmacy: [facility]
Living situation: Patient lives with his . He lives in a split-level home. 10 steps to enter. He has several friends for support.
Finances: Patient denies any social insecurities. He is able to afford her housing, clothing, medications, food, utilities and transportation. He is retired.
DME/Ambulation: Patient ambulates independently. He owns, but does not utilize: a walker, cane and wheelchair.
Transportation: Patient's will provide transport once he is discharged. Patient does drive.
Agreeable to home health care?: Yes, if needed.
ANTICIPATED DISCHARGE DISPOSITION:
Return to home with , once medically cleared.
CM will continue to follow case and available for further assistance.
--- NOTE | 2024-03-26 12:52 | W.PN.GI.CBS2 ---
Today's Communication / Plan
-
advance diet, continue with supportive mx, will set up GI f/u, GI s/o.
Assessment / Plan
-
64-year-old male presenting with alcohol induced acute pancreatitis with abnormal finding on abdominal CT.
Impression / Rec:
1. Acute pancreatitis with lesion seen in TOP - Patient was admitted with acute onset epigastric abdominal pain with associated nausea and found to have lipase of 1800s and CT demonstrating stranding around the tail of pancreas consistent with
alcohol induced pancreatitis. Patient drinks 6 packs of beer almost daily and sometimes hard liquor as well. [id number] of smoking history although he quit on 09/2023. Denies prior history of pancreatitis or jaundice. CT also showed complex
fluid density mass in the tail of pancreas measuring 5.5 x 9.5 x 8[address] was reviewed by me. This may be a complex pseudocyst versus cystic lesion.
MRI yesterday showed acute necrotizing pancreatitis involving the body and tail with large acute necrotic collection measuring 10 cm. Patient feels comfortable and denies abdominal pain/nausea/vomiting. Afebrile. Agree with advancing diet to full
liquids and eventually to solid. Continue supportive management, no need for endoscopic intervention at this time. Will need a follow-up with me in 4 to 6 weeks after discharge and this was discussed with the patient. Will also need to stop
drinking. GI will sign off please call with questions.
Total Time Spent with Patient (in minutes): 35
Subjective
Subjective
Date of Service: March 26, 2024
Feels well, denies pain, feels hungry
Objective
Data Reviewed
Laboratory Data:
Laboratory Results
03/26/24 06:52
03/26/24 06:52
Laboratory Results
PT 15.1 Sec (11.4-14.6) H 03/25/24 00:14
INR 1.21 03/25/24 00:14
APTT 32.5 Sec (23.4-35.0) 03/25/24 00:14
Phosphorus 3.2 mg/dl (2.5-4.5) 03/25/24 00:14
Magnesium 1.7 mg/dl (1.6-2.3) 03/25/24 00:14
Total Bilirubin 1.3 mg/dl (0.2-1.3) 03/26/24 06:52
AST 22 U/L (17-59) 03/26/24 06:52
ALT 14 U/L (0-50) 03/26/24 06:52
Alkaline Phosphatase 70 U/L (38-126) 03/26/24 06:52
Lipase 1802 U/L (23-300) H* 03/24/24 18:49
Vital Signs and I&O:
Vital Signs
Temp Pulse Resp BP Pulse Ox
98.3 F 69 18 127/76 96
03/26/24 12:00 03/26/24 12:00 03/26/24 12:00 03/26/24 12:00 03/26/24 12:00
I&O
03/25/24 03/26/24 03/27/24
06:59 06:59 06:59
Intake Total 1000 / 1000 4360 / 4360
Output Total 1100 / 1100 980 / 980 400 / 400
Balance -100 / -100 3380 / 3380 -400 / -400
[2024-03-26 16:21] VITALS: BP 127/79
[2024-03-26] MEDS: LOVENOX 40 MG SC (17:06)
[2024-03-26 19:33] VITALS: BP 124/71
[2024-03-26 23:49] VITALS: BP 137/78
[2024-03-27] MEDS: THIAMINE INJECTION 200 MG IV ×2 (00:21→08:44)
[2024-03-27] MEDS: MELATONIN 5 MG PO (01:57)
[2024-03-27 03:55] VITALS: BP 136/78
--- NOTE | 2024-03-27 07:44 | W.PN.UPDATE ---
Update Note
Progress Note Update
I had a long discussion with the patient this morning at bedside.
Clinically he looks well
No complaints
Denies abdominal pain
On physical exam he is nontoxic-appearing
Abdomen is obese but soft and nontender throughout
I reviewed the CT angiogram images in detail.
He has a short infrarenal neck but is an endovascular candidate for abdominal aortic aneurysm repair.
Would like him to recover from his current pancreatitis before proceeding with endovascular repair.
I provided him with my contact information and will plan to see him in the office in a few weeks for a surgical discussion
He is comfortable with this plan
Weston Fabian III, MD
[facility] Surgery
[phone] (ieez)
[2024-03-27 07:55] VITALS: BP 142/88
[2024-03-27 08:36] LABS: % Basophils 0.1 % (0-2); % Eosinophils 2.3 % (0-6); % Immature Granulocytes 0.5 % (0-0.5); % Lymphocytes 11.1 % (20.5-51.1); % Monocytes 10.9 % (1.7-9.3); % Neutrophils 75.1 % (42.2-75.2); Absolute Eosinophils 0.2 10^3/uL (0-0.7); Absolute Lymphocytes 0.9 10^3/uL (1.2-3.4); Absolute Monocytes 0.8 10^3/uL (0.1-0.6); Absolute Neutrophils 5.8 10^3/uL (1.4-6.5); Hematocrit 31.3 % (39.0-52.0); Hemoglobin 11.3 g/dL (13.0-18.0); Mean Corp Hgb Conc. 36.1 g/dL (33.0-37.0); Mean Corpuscular Hgb 32.3 pg (27.0-31.0); Mean Corpuscular Volume 89.4 fL (80.0-94.0); Mean Platelet Volume 11.9 fL (7.4-10.4); Nucleated Red Blood Cells % 0 % (-); Platelet Count 66 10^3/uL (130-400); Red Cell Dist. Width 13.6 % (11.5-14.5); White Blood Cell Count 7.7 10^3/uL (4.8-10.8)
[2024-03-27] MEDS: PROTONIX IV 40 MG IV (08:44)
[2024-03-27] MEDS: NSS (PRESERVATIVE FREE) 10 ML IV (08:44)
[2024-03-27] MEDS: FOLVITE 1 MG PO (08:44)
[2024-03-27] MEDS: ASPIR LOW (ENTERIC COATED) 81 MG PO (08:44)
[2024-03-27 08:54] LABS: ALT (SGPT) 13 U/L (0-50); AST (SGOT) 18 U/L (17-59); Albumin 2.7 g/dl (3.5-5.0); Alkaline Phosphatase 66 U/L (38-126); Blood Urea Nitrogen 7 mg/dl (9-20); Calcium 8.1 mg/dl (8.4-10.2); Carbon Dioxide 23 mmol/L (22-30); Chloride 105 mmol/L (98-107); Estimated Creatinine Clearance > 125 ml/min; Glucose 118 mg/dl (70-99); Potassium 3.6 mmol/L (3.5-5.1); Sodium 137 mmol/L (135-145); Total Bilirubin 1.2 mg/dl (0.2-1.3); eGFR > 60.00
--- NOTE | 2024-03-27 09:52 | W.PN.HOSP.TC ---
Today's Communication/Plan
-
dc after lunch if no pain or nausea
Assessment / Plan
Assessment / Plan
Physical Exam
General: Conversant; No Fever or Chills
HEENT: NormoCephalic, Anicteric, Moist mucous membranes, PERRLA, [place] Conjunctivae and No Ptosis
Respiratory: Clear; No Wheezes, Rales or Rhonchi
Cardiac: S1/S2 and Regular Rhythm; No Murmur, Rub, Gallop or Peripheral Edema
GI: Soft, Normal Bowel Sounds, not Tender. Per pt, abdomen looked obese and not distended.
Rectal: no rectal bleeding
Genito-urinary: Deferred by me
Musculoskeletal: No Clubbing and No Edema
Skin: Warm and Dry; No Rash or Jaundice
Neuro: AO x 3, No Motor Deficits, Nonfocal/grossly intact, Cranial Nerves Intact and No Sensory Deficits; No Slurred Speech, Facial Droop, Tremors or Sedated
Psych: Calm
#Acute pancreatitis 2/2 alcohol abuse
#Necrotizing pancreatitis
#10 Centimeter acute necrotic collection posterior to the pancreatic body and tail
#SIRS-most likely secondary to noninfectious etiology
White count trending down, no fevers or chills.
s/p IV fluids
No need for pain medicine
tolerating diet, he feels hungry and no nausea.
MRI abdomen is reviewed by GI and recommended to advance duet slowly and f/w in office
Alcohol cessation, pt reported willingness to stay sober and verbalized understanding to potential risks of alcoholism.
#Hyperbilirubinemia
� monitor
-resolving
#5.5 cm infrarenal abdominal aortic aneurysm with eccentric thrombus which terminates at the aortic bifurcation
-vascular consulted, recommend endovascular repair electively post recovering from pancreatitis, pt is given follow up informations and he agreed to the plan.
-asa 81 for thrombus
-stent graft candidate anatomically
-CT Angio A/P for surgical planning performed
� Follow-up vascular outpatient
#Hypokalemia
� Monitor and replete
#Alcohol abuse
No alcohol withdrawal signs, lucid and cocmfortable. No tremor or anxiety
-MSAS screen with protocol
--IV thiamine, IV folate
#Thrombocytopenia likely secondary to alcohol abuse
-ctm
#Former smoker
40-year 1 pack a day quit October 09, 2022
DVT prophylaxis
Subcu Lovenox
Full code
Total discharge time spent to see the patient, examine the patient on the floor, review data and lab results, discuss the discharge plan with the patient, nursing staff around 65 minutes
Anticipated Discharge: Today
Subjective/Interval History
-
Date of Service: March 27, 2024
Objective Data
-
Labs:
Laboratory Results
03/27/24
07:57
WBC 7.7
Hgb 11.3 L
Hct 31.3 L
Plt Count 66 L
Sodium 137
Potassium 3.6
Chloride 105
Carbon Dioxide 23
BUN 7 L
Creatinine 0.6 L
Glucose 118 H
Calcium 8.1 L
Total Bilirubin 1.2
AST 18
ALT 13
Alkaline Phosphatase 66
Vital Signs:
Vital Signs
Temp Pulse Resp BP Pulse Ox
97.8 F 62 20 142/88 94
03/27/24 07:55 03/27/24 07:55 03/27/24 07:55 03/27/24 07:55 03/27/24 07:55
I&O
03/26/24 03/27/24 03/28/24
06:59 06:59 06:59
Intake Total 4360 / 4360 2800 / 2800
Output Total 980 / 980 3350 / 3350
Balance 3380 / 3380 -550 / -550
[2024-03-27 14:30] VITALS: BP 148/77
--- NOTE | 2024-03-27 15:43 | W.DCSUMMARY ---
Discharge Summary
Discharge Data
Date of Admission: 03/24/24
Date of Discharge: 03/27/24
-
Pending Results: No
Hospital Course
64 years old male presented with epigastric pain for one day duration along with belching and nausea. He reported feeling lightheaded with chills, nausea and loose stool watery brown with few stools. He reported he drank a sixpack of beer daily
including tequila every other week. He denied fever, chest pain. He stated he did not see a primary care provider, he only went to the hospital when he felt sick. His past medical included history of alcohol abuse, former smoker, obesity.
Abdominal scan demonstrated stranding around the tail of pancreas consistent with alcohol induced pancreatitis, a complex fluid density mass in the tail of pancreas measuring 5.5 x 9.5 x 8.0 cm. The scan was reviewed by GI doctor and felt it was
consistent with complex pseudocyst versus cystic lesion. MRI showed acute necrotizing pancreatitis involving the body and tail with large acute necrotic collection measuring 10 cm. Patient was admitted for bowel rest, and received intravenous
fluid. Patient started to feel better with resolution of abdominal pain/nausea/vomiting. He remained afebrile. Diet was advanced slowly with good tolerance. Gastrointestinal doctor recommended a follow-up in 4 to 6 weeks after discharge.
Incidental finding of abdominal aortic aneurysm as 5.5 cm infrarenal abdominal aortic aneurysm with eccentric thrombus which terminated at the aortic bifurcation. Patient was started on 81 mg of aspirin. Patient was evaluated by vascular surgery
and recommended outpatient follow-up to consider endovascular repair. Patient verbalized understanding to these instructions. He also verbalized understanding to the importance of avoiding alcohol. Patient remained hemodynamically stable and
was discharged in a stable condition.
Discharge Plan
-
Patient Disposition: Home (Routine Discharge)
Discharge Diagnosis/Procedures: Acute alcohol induced pancreatitis. Cat scan showed showed complex fluid density mass in the tail of pancreas measuring 5.5 x 9.5 x [address] was reviewed by GI doctor. This may be a complex pseudocyst versus
cystic lesion. follow-up with me in 4 to 6 weeks after discharge.
- abdominal aortic aneurysm, follow up with vascular surgery.
Condition: Fair
Diet: As tolerated and Low Fat
Referrals:
Amish Jolley MD [Family Provider] - in one week
Weston Fabian III, MD [Active] - in two weeks
Iban Xie MD [Active] - in one month
Prescriptions:
New
aspirin 81 mg Tablet,Delayed Release (Dr/Ec)
81 mg PO DAILY Qty: 30 0RF
Discharge Orders:
Discharge Patient (As Directed); Ordered 03/27/24
Ordered By: Farrah Cabral
Discharge Date and Time
Print Language: KYRGYZ
== END 2024-03-27 16:29 | disposition home or self-care (01) | DRG 439 ==
LOC: 4 EAST ACU 21:20
PROVIDERS: Clinical Nurse Specialist Family Health; Emergency Medicine; Internal Medicine; ADMITTING PHYSICIAN Hospitalist; ATTENDING PHYSICIAN Internal Medicine; CONSULT PHYSICIAN Internal Medicine Gastroenterology; EMERGENCY PHYSICIAN Emergency Medicine; FAMILY PHYSICIAN Family Medicine
DX: K85.21 Alcohol induced acute pancreatitis with uninfected necrosis (principal); R65.10 Systemic inflammatory response syndrome (SIRS) of non-infectious origin without acute organ dysfunction; Z87.891 Personal history of nicotine dependence; D69.59 Other secondary thrombocytopenia; F10.10 Alcohol abuse, uncomplicated; I71.43 Infrarenal abdominal aortic aneurysm, without rupture; E87.6 Hypokalemia; Z11.52 Encounter for screening for COVID-19
CPT/HCPCS: 71046; 74174; 74177; 74183; 80053; 80306; 81003; 81015; 82010; 82077; 82248; 82977; 83690; 83735; 83880; 84100; 84484; 85025; 85027; 85610; 85730; 87811; 93005; 96365; 96375; 97161; 99285; Q9967

== ENCOUNTER → 2024-05-09 10:59 | Outpatient (REF) | payer OTHER, MEDICARE, SELFPAY | LOC: HWRCS 10:59 | PROVIDERS: ATTENDING PHYSICIAN Internal Medicine Cardiovascular Disease; FAMILY PHYSICIAN Family Medicine | DX: Z01.818 Encounter for other preprocedural examination (principal) | CPT/HCPCS: 93306 ==

== ENCOUNTER → 2024-05-11 11:22 | Outpatient (REF) | payer OTHER, MEDICARE, SELFPAY | LOC: DHCBC/DCA 11:22 | PROVIDERS: ATTENDING PHYSICIAN Internal Medicine Cardiovascular Disease; FAMILY PHYSICIAN Family Medicine | DX: Z01.818 Encounter for other preprocedural examination (principal) | CPT/HCPCS: 78452; 93017; A9500; J2785 ==

== ENCOUNTER 2024-05-23 06:08 | Inpatient (IN) | payer OTHER, SELFPAY ==
[2024-05-18 09:06] VITALS: BMI 32.5
[2024-05-18 09:44] LABS: % Basophils 0.2 % (0-2); % Eosinophils 3.8 % (0-6); % Immature Granulocytes 0.5 % (0-0.5); % Monocytes 9.2 % (1.7-9.3); % Neutrophils 66.3 % (42.2-75.2); Absolute Eosinophils 0.3 10^3/uL (0-0.7); Absolute Lymphocytes 1.6 10^3/uL (1.2-3.4); Absolute Monocytes 0.7 10^3/uL (0.1-0.6); Absolute Neutrophils 5.4 10^3/uL (1.4-6.5); Hematocrit 43.7 % (39.0-52.0); Hemoglobin 15.2 g/dL (13.0-18.0); Mean Corp Hgb Conc. 34.8 g/dL (33.0-37.0); Mean Platelet Volume 10.7 fL (7.4-10.4); Nucleated Red Blood Cells % 0 % (-); Platelet Count 193 10^3/uL (130-400); Red Blood Cell Count 4.91 10^6/uL (4.70-6.10); Red Cell Dist. Width 12.9 % (11.5-14.5); White Blood Cell Count 8.1 10^3/uL (4.8-10.8)
[2024-05-18 09:51] LABS: INR 0.99; PT 13.1 Sec (11.4-14.6)
[2024-05-18 09:52] LABS: APTT 31.1 Sec (23.4-35.0)
[2024-05-18 09:59] LABS: Blood Urea Nitrogen 13 mg/dl (9-20); Calcium 9.6 mg/dl (8.4-10.2); Carbon Dioxide 26 mmol/L (22-30); Chloride 104 mmol/L (98-107); Estimated Creatinine Clearance 104 ml/min; Glucose 104 mg/dl (70-99); Potassium 4.5 mmol/L (3.5-5.1); Sodium 140 mmol/L (135-145); eGFR > 60.00
[2024-05-23] VITALS (17 sets, daily range): BP systolic 113–171; BP diastolic 71–130; BMI 32.4
[2024-05-23] MEDS: PERIDEX 0.12% ORAL RINSE 15 ML PO (06:53)
[2024-05-23] MEDS: BACTROBAN NASAL 1 GRAM NASAL (06:54)
--- NOTE | 2024-05-23 07:25 | W.SUR.PREOP ---
Pre-Operative Surgical Note
-
I have examined this patient prior to the performance of the scheduled procedure.
The patient's condition is unchanged from the time of the current History and
Physical and the patient is able to undergo the scheduled procedure.
[2024-05-23 08:42] LABS: ACT-LR - POC 265 Seconds (116-155)
[2024-05-23 09:30] LABS: ACT-LR - POC 297 Seconds (116-155)
[2024-05-23 10:11] LABS: ACT-LR - POC 260 Seconds (116-155)
[2024-05-23] MEDS: PLAVIX 300 MG PO (11:40)
[2024-05-23 11:41] LABS: Hematocrit 37.6 % (39.0-52.0); Hemoglobin 13.2 g/dL (13.0-18.0); Mean Corp Hgb Conc. 35.1 g/dL (33.0-37.0); Mean Corpuscular Hgb 30.8 pg (27.0-31.0); Mean Corpuscular Volume 87.9 fL (80.0-94.0); Mean Platelet Volume 10.5 fL (7.4-10.4); Platelet Count 147 10^3/uL (130-400); Red Blood Cell Count 4.28 10^6/uL (4.70-6.10); Red Cell Dist. Width 12.9 % (11.5-14.5); White Blood Cell Count 8.3 10^3/uL (4.8-10.8)
[2024-05-23 11:44] LABS: Blood Urea Nitrogen 9 mg/dl (9-20); Calcium 8.5 mg/dl (8.4-10.2); Carbon Dioxide 20 mmol/L (22-30); Chloride 107 mmol/L (98-107); Estimated Creatinine Clearance 92 ml/min; Glucose 147 mg/dl (70-99); Potassium 4.4 mmol/L (3.5-5.1); Sodium 138 mmol/L (135-145); eGFR > 60.00
--- NOTE | 2024-05-23 11:45 | OR.RPT ---
Operative Report
Operative Report
Date of Operation: 05/23/2024
Pre Op Diagnosis:
1.) Abdominal aortic aneurysm
2.) Recent necrotizing pancreatitis with large pancreatic pseudocyst
Post Op Diagnosis:
1.) Abdominal aortic aneurysm
2.) Recent necrotizing pancreatitis with large pancreatic pseudocyst
Procedure:
1.) Endovascular aortic aneurysm repair with Endologix [place] device:
26 mm [place] main body
14 mm x 160 mm Ovation iX left iliac limb
14 mm x 140 mm Ovation iX right liac limb
2.) Balloon angioplasty and stenting of left renal (6 mm x 22 mm iCast)
3.) Introduce wire/catheter to aorta from bilateral femoral artery access
4.) Ultrasound percutaneous access to the bilateral common femoral arteries
5.) Proglide closure of the bilateral femoral artery access sites
Surgeon: Weston Fabian III, MD
Professor Of Exercise Science: Vilma Adkins MD PGY-8
Anesthesia: General
Complications: Occlusion of right renal artery
Estimated Blood Loss: 50 cc
History and Indications for Procedure: 64-year-old male with abdominal aortic aneurysm and recent admission for necrotizing pancreatitis and associated pancreatic pseudocyst.
Procedure in Detail: Ge Christianson was correctly identified and placed supine on the operating table. After adequate induction of anesthesia the abdomen, pelvis and bilateral groins were positioned, prepped and draped in the usual sterile
fashion. Preoperative antibiotics were administered. A timeout procedure was performed with the nursing and anesthesia staff confirming the patients identity as well as the nature and laterality of the procedure.
Under ultrasound guidance, bilateral femoral artery sheath access was obtained. The arteries were patent and without calcification. Ultrasound images of the femoral arteries were saved to the medical record. A pre-close technique was performed
bilaterally with 2 offset Proglide closure devices. The sutures were secured and tucked under surgical towels for use at the end of the case. The patient was systemically heparinized. An 11 Nepali sheath was placed on the left. An 8 Fr sheath was
placed on the right.
From the right femoral access an KMP catheter and Bentson wire were advanced to the proximal descending thoracic aorta. The wire was exchanged out through the MPA catheter for a Lunderquist wire. a 16 Fr Dry Seal sheath was advanced to the distal
abdominal aorta. From the left femoral access a Bentson wire was advanced into the abdominal aorta. A marker pigtail catheter was then placed for angiographic purposes. An aortogram was performed and identified the origins of the renal arteries
bilaterally.
The 26 mm ALTO aortic main body device was then loaded onto the Lunderquist wire. The delivery system and aortic main body were oriented to the desired position. The delivery system was advanced into the abdominal aorta. An aortogram was performed
and identified the origins of the renal arteries bilaterally. The delivery system was then positioned such that the radiopaque fabric markers were just below the left renal artery.
The outer sheath was then retracted until the knob met the handle. The first segment of the suprarenal fixation was then deployed by turning the yellow release knob and pulling. I removed the white From the balloon injection port and inflated the
integrated balloon with 5 cc of 4:1 saline:contrast to open the mid crown. I then completely deflated the integrated balloon.
Using the radiopaque markers for orientation, the C-arm was positioned in a cranial orientation to eliminate parallax. Another aortogram was performed under magnification. The main body was then precisely positioned below the left renal artery. The
pigtail catheter was pulled down into the aneurysm away from the suprarenal fixation stent. With the main body in the desired location the remainder of the suprarenal fixation stent was deployed by pulling the second release knob.
The polymer was prepared on the back table. The green fill cap was then removed from the polymer injection port on the handle and the fill syringe was attached to it.The autoinjector was connected to the fill syringe and polymer was instilled.
Fluoro was used to intermittently observe filling of the main body with polymer. A timer was started to keep track of the polymer set time.
Using a KMP catheter and a glidewire the contralateral gate access was obtained. The catheter was spun in the main body to confirm proper position. The glidewire and catheter were then advanced proximally. The wire was exchanged out for a floppy tip
Amplatz wire. A marker pigtail catheter was inserted over the stiff wire. A retrograde arteriogram was performed in an oblique C-arm projection to visualize the iliac bifurcation and to measure lengths. A 14 mm x 160 mm Ovation iX iliac limb was
then inserted over the stiff wire and advanced to the proper position with proper overlap. The limb was deployed without difficulty under roadmap guidance with the distal end in the the common iliac artery, preserving the iliac bifurcation.
At the 20 minute flash for polymer fill the integrated balloon was used to profile of the proximal aortic seal zone.
The third release knob was pulled to release the catheter from the aortic main body. The catheter handle on the main body deployment system was retracted to re-seat the nosecone in the delivery system outer sheath.
A retrograde arteriogram was then performed on the right with a pigtail catheter over the stiff wire. The iliac bifurcation was visualized and lengths were measured for the ipsilateral iliac limb. A 14 mm x 140 mm iliac limb was inserted on the
right under fluoro. Proper overlap was obtained. The limb was deployed under roadmap guidance without difficulty.
12 mm x 40 mm angioplasty balloons were inserted bilaterally and used to profile both iliac limbs at the sites of overlap, along their entire lengths and the distal seal zones bilaterally.
A completion aortogram demonstrated that the aneurysm was excluded. No endoleaks were seen. There was brisk flow through the stent and iliac limbs. The iliac bifurcations were preserved bilaterally. There was partial coverage of the left renal
artery and no filling of the right renal artery was seen.
I then used a MHK catheter and glidewire to access the left renal artery. I then exchanged out for a Jones. A 6 Fr curved Shahbaz sheath was advanced into the left renal artery. An arteriogram confirmed proper position in the left renal artery. A 6 mm
x 22 mm iCast was then positioned in the desired location under roadmap guidance and magnification view and deployed. Completion arteriogram demonstrated the stent in good position and a widely patent left renal artery.
Next I attempted to select the right renal artery. This was very difficult given that there was no stump of patent renal artery to engage and no flow to the right renal artery whatsoever. I tried to select the right renal artery with an MHK
catheter and glidewire, a Van Schie catheter and glidewire, a 7Fr Tourguide sheath with various catheters and wires and several 0.014 wires. I was completely unsuccessful with these various approaches at getting access to the right renal artery and
further attempts were abandoned.
The Proglide sutures were secured bilaterally after removing the sheaths and wires. Additional pressure was applied to the puncture sites bilaterally for 10 minutes. Hemostasis was achieved bilaterally.
Sterile dressings were applied.
The patient tolerated the procedure well and was taken to the PACU in stable condition.
Attestation: I was present and responsible for the entire procedure
Signed:
Weston Fabian III, MD
[facility]
[phone] (cell)
[2024-05-23] MEDS: ASPIR LOW (ENTERIC COATED) 81 MG PO (11:53)
--- NOTE | 2024-05-23 11:56 | CON.INTV ---
Consultation
Consultation Request
Date/Time Consultation Requested: 05/23
Date/Time Consultation Performed: 05/23
Reason for Consultation: Critical care
Medical History
-
History of Present Illness:
History obtained from the chart as patient is currently in the PACU, waking up from anesthesia. He is arousable answering simple questions. 64-year-old male with history of hypertension, hypercholesterolemia, with history of abdominal aortic
aneurysm which was found in the setting of alcoholic pancreatitis in February 2024. At that time he had a 5.5 cm infrarenal abdominal aortic aneurysm. He underwent endovascular repair 05/23/2024. We are asked to help from critical care standpoint
Presently, he is without shortness of breath, nausea, chest pain. He has chronic back pain. He has a Fabian catheter in place. Left upper A-line is in place
.
PMH: Hypertension, hyperlipidemia, alcoholic pancreatitis February 2024, history of knee surgery, ankle surgery, suspected sleep apnea with history of snoring/EDS
Past Medical History
Past Medical History: None (See above)
Past Surgical History: None (See above)
Social History
Tobacco: Former Smoker ([id number], quit 2023)
Alcohol: Daily (1-2 drinks a day)
Drug: None
Personal:
Living: With Family
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
Family History
Family History: Other (Mother and father . Father had a history of aortic aneurysm. 1 sister healthy)
Allergies / Home Medications
Allergies
Allergy/AdvReac Type Severity Reaction Status Date / Time
Penicillins Allergy Unknown Verified 05/23/24 06:26
Home Medications
�Medication �Instructions �Recorded �Confirmed �Last Taken �Type
aspirin 81 mg tablet,delayed 81 mg PO DAILY #30 tabs 03/27/24 05/23/24 05/22/24 08:00 Rx
release
rosuvastatin 20 mg tablet 20 mg PO DAILY 05/15/24 05/23/24 05/22/24 08:00 History
Review of Systems
-
All other systems: Negative unless noted
Vitals / Labs / Diagnostic Testing
Vital Signs
Temp Pulse Resp BP Pulse Ox
97.8 F 60 18 160/91 100
05/23/24 11:15 05/23/24 07:00 05/23/24 07:00 05/23/24 06:31 05/23/24 11:56
Lab Data
05/23/24 11:21
05/23/24 11:21
Diagnostic Testing:
Physical Exam
-
HEENT: Normocephalic, Anicteric and Other (Left upper extremity A-line)
Cardiovascular: S1/S2, Regular Rhythm (Bradycardic), Murmur (n) and Rub (n)
Respiratory: Wheeze (n), Rales (n), Rhonchi (n) and Non-Labored Respirations
GI: Soft, Non Distended (Obese) and Non Tender
Neurology: Other (Lethargic but able to answer questions, follow commands)
Skin: Other (Bilateral groin sites intact, distal pulses intact)
General: Comfortable
Assessment
-
64-year-old male with history of alcoholic pancreatitis in February 2024 at which time he had a complex pseudocyst with necrotizing features on MRI. Patient was discharged 03/27/2024. He was also noted to have a 5.5 cm infrarenal abdominal aortic
aneurysm which terminated at the aortic bifurcation. Patient is now status post EVAR 05/23/2024. We are asked to help from critical care standpoint
S/p EVAR 05/23/2024
5.5 cm infrarenal abdominal aortic aneurysm
balloon angioplasty/stent left renal artery
Recent acute necrotizing pancreatitis
Complex pseudocyst
February 2024
Moderate alcohol use, 1-2 drinks a day
Mild hyperglycemia
History of thrombocytopenia, likely secondary to alcohol use
Conditions present prior to admission
Hypertension/hyperlipidemia
[id number] history of smoking, quit February 2024
Family history of abdominal aortic aneurysm (father)
Suspected sleep disordered breathing, per history
Plan/recommendations
At this time, patient appears to be comfortable. Primary complaint is back pain. He has chronic back pain per history
Otherwise hemodynamically stable, heart rate in the 50s
Bilateral groin sites intact, distal pulses intact, abdominal exam benign
Left upper extremity A-line in place
Reviewed preoperative cardiac clearance. Patient echocardiogram and stress test unremarkable
Moving forward
Continue with management per vascular protocol
Aspirin, Plavix, subcutaneous heparin
Follow hemodynamics closely
A-line in place
EKG postprocedure pending
Chest x-ray pending
Urine output, follow creatinine
Balloon angioplasty and renal stent placed left side
Pain control, bowel regimen as needed
Patient with significant smoking history
Would recommend eventual lung cancer screening
No obvious abnormality on lung base on recent abdominal imaging except for platelike atelectasis
Ongoing discussion regarding alcohol and tobacco abstinence
Follow-up for withdrawal. Will clarify details with regards to last alcohol drink but per outpatient records, he seems to have cut down significantly
Recent hospital stay for acute necrotizing pancreatitis was reviewed
Patient would also benefit from outpatient sleep apnea screening
This will be an ongoing discussion
Reviewed with PACU nursing
We will follow
TCCT 31 min
[2024-05-23] MEDS: DILAUDID 0.25 MG IV (11:57)
--- NOTE | 2024-05-23 12:45 | PTCARENOTE ---
Received patient to room 3359. Patient is AAOx4, 98% on 2L, lungs clear. sinus rhythm on monitor, left radial Kavita patent, leveled at phlebostatic axis. Zero'ed to atmospheric pressure. Patient is to lay flat for two hours post closure then 30
degrees 4 hours after that. Fabian draining yellow urine. Will review orders. patient oriented to room, call romero within reach.
[2024-05-23] MEDS: NSS 1000 IV ×2 (12:46→21:33)
[2024-05-23] MEDS: DILAUDID 0.5 MG IV (12:47)
--- NOTE | 2024-05-23 14:39 | PTCARENOTE ---
Dr. Fabian in to update family on Operation.
[2024-05-23] MEDS: NSS 500 IV (17:02)
--- NOTE | 2024-05-23 17:43 | PTCARENOTE ---
Had reached out to vascular team regarding patient's blood pressure at 1650. Patient's BP is consistently in 160-170s. parameters changed to SBP up to 180s ok. Called vascular team back as aptient also only had 12cc urine out that hour (at 1645).
Ordered 1L NSS bolus over and hour and an increase rate in IV fluids.
--- NOTE | 2024-05-23 17:48 | PTCARENOTE ---
Dr. Fabian at bedside to evaluate patient. Neurovascular and groin checks remain unchanged. Urine output is picking up as charted in worklist. Verbal order placed for nicardipine if SBP remains above 180 190 consistently. Order sheet sent to
pharmacy.
--- NOTE | 2024-05-23 19:30 | PTCARENOTE ---
Resumed care of pt this evening. Received pt A&Ox3, able to move all 4 extremities, and make needs known. Vascular checks performed and both DP and PTs are present bilaterally w/ doppler. A-line in place, zeroed to atmospheric pressure, and is
transducing. Pt is in NSR on tele monitor and has no edema. Pt's abodmen is round w/ +BS. Fabian in place draining yellow colored urine. B/L surgical groin site AYLIN and is C/D/I.
[2024-05-23] MEDS: HEPARIN 5000 UNITS SC (21:33)
[2024-05-24] VITALS (19 sets, daily range): BP systolic 119–169; BP diastolic 67–84; BMI 32.4
--- NOTE | 2024-05-24 | PTCARENOTE ---
Upon reassessment, neurovascular checks are unchanged. Pt denies pain and/or paresthesia of the lower extremities.
[2024-05-24] MEDS: DILAUDID 0.5 MG IV (00:47)
[2024-05-24] MEDS: NSS 1000 IV (04:17)
[2024-05-24 04:43] LABS: Hematocrit 30.7 % (39.0-52.0); Hemoglobin 10.8 g/dL (13.0-18.0); Mean Corp Hgb Conc. 35.2 g/dL (33.0-37.0); Mean Corpuscular Volume 88.2 fL (80.0-94.0); Mean Platelet Volume 10.9 fL (7.4-10.4); Platelet Count 125 10^3/uL (130-400); Red Blood Cell Count 3.48 10^6/uL (4.70-6.10); Red Cell Dist. Width 12.8 % (11.5-14.5); White Blood Cell Count 11.2 10^3/uL (4.8-10.8)
[2024-05-24 04:53] LABS: APTT 30.8 Sec (23.4-35.0); INR 1.17; PT 14.7 Sec (11.4-14.6)
[2024-05-24 05:04] LABS: Blood Urea Nitrogen 11 mg/dl (9-20); Carbon Dioxide 18 mmol/L (22-30); Chloride 108 mmol/L (98-107); Estimated Creatinine Clearance 69 ml/min; Glucose 137 mg/dl (70-99); Sodium 138 mmol/L (135-145); eGFR > 60.00
[2024-05-24] MEDS: CRESTOR 20 MG PO (07:45)
[2024-05-24] MEDS: PLAVIX 75 MG PO (07:45)
[2024-05-24] MEDS: HEPARIN 5000 UNITS SC ×2 (07:45→19:59)
[2024-05-24] MEDS: ASPIR LOW (ENTERIC COATED) 81 MG PO (07:45)
--- NOTE | 2024-05-24 07:49 | W.PN.VS ---
Addendum entered and electronically signed by Addy Perez MD 05/24/24 11:50:
Seen and examined with MARIA DEL CARMEN Castillo earlier this AM - this is a late entry. Agree with findings as noted below. No abd pain/flank pain. Abd soft, ND, NT. Groins flat b/l. Feet warm. Clear yellow jimenez output. Labs reviewed. Plan/ as discussed and
noted below.
Addendum entered and electronically signed by FILI Guan 05/24/24 07:52:
Skin check performed no evidence of skin breakdown, open wounds, or hair loss noted at back, chest, or legs.
Original Note:
Today's Communication / Plan
-
Patient seen and examined at bedside with Dr. Addy Perez, plan reviewed with attending
Assessment/Plan
-
Assessment: 64-year-old male POD #1 Endovascular aortic aneurysm repair with Endologix [place] device, occlusion of right renal artery
Plan:
Discontinue IV fluids
Discontinue Jimenez catheter
Discontinue arterial line
OOB to chair with progression ambulation as tolerated
Continue neurovascular checks as ordered
Encourage incentive spirometry
Will keep additional night to monitor kidney function
Subjective Data
-
Date of Service: May 24, 2024
Patient seen and examined at bedside, offers no complaints. Denies nausea, vomiting, fever, and chills. Tolerating p.o. diet.
Objective Data
-
Vital Signs
Temp Pulse Resp BP Pulse Ox
98.6 F 65 18 132/73 95
05/24/24 07:34 05/24/24 06:30 05/24/24 06:30 05/24/24 04:00 05/23/24 19:30
Intake and Output
05/23/24 05/24/24 05/25/24
06:59 06:59 06:59
Intake Total 4780 / 4880 100 / 100
Output Total 2964 / 2964
Balance 1816 / 1916 100 / 100
Intake:
Oral fluids 1380 / 1380
IV fluids (Total) 3300 / 3400 100 / 100
Bolus 1000 / 1000
Nss 1,000 ml @ 100 mls/hr IV . 2200 / 2300 100 / 100
Q10H SHANE Rx#:[id number]
normal saline 100 / 100
IV piggybacks 100 / 100
Output:
Urine, Jimenez 2964 / 2964
Lab Results
05/24/24 04:23
05/24/24 04:23
Calcium 8.0 mg/dl (8.4-10.2) L 05/24/24 04:23
Physical Exam
-
AAOx3, no apparent distress
No tachycardia
No dyspnea on room air
ABD soft, nontender, nondistended
Bilateral groin sites CDI, Exofin intact, no evidence of hematoma
Jimenez draining clear yellow urine
Bilateral feet warm, +1 palpable DP pulses
--- NOTE | 2024-05-24 07:52 | W.PN.INTV ---
Today's Communication / Plan
Recommendations
Continue management per vascular surgery
Out of bed to chair, ambulate
Continue to monitor creatinine, urine output
Assessment
-
64-year-old male with history of alcoholic pancreatitis in February 2024 at which time he had a complex pseudocyst with necrotizing features on MRI. Patient was discharged 03/27/2024. He was also noted to have a 5.5 cm infrarenal abdominal aortic
aneurysm which terminated at the aortic bifurcation. Patient is now status post EVAR 05/23/2024. We are asked to help from critical care standpoint
S/p EVAR 05/23/2024
5.5 cm infrarenal abdominal aortic aneurysm
balloon angioplasty/stent left renal artery
Recent acute necrotizing pancreatitis
Complex pseudocyst
February 2024
Moderate alcohol use, 1-2 drinks a day
Mild hyperglycemia
History of thrombocytopenia, likely secondary to alcohol use
Conditions present prior to admission
Hypertension/hyperlipidemia
32-[id number]-fule history of smoking, quit February 2024
Family history of abdominal aortic aneurysm (father)
Suspected sleep disordered breathing, per history
Plan/recommendations
At this time, patient appears to be comfortable. He is without complaints
Hemodynamically stable
Urine output adequate
Bilateral groin sites intact, distal pulses intact, abdominal exam benign
Moving forward
Continue with management per vascular protocol
Aspirin, Plavix, subcutaneous heparin
Follow hemodynamics closely
EKG sinus bradycardia
Chest x-ray unremarkable, Mild bibasilar atelectasis
Incentive spirometry
Urine output adequate, creatinine 1.2
Balloon angioplasty and renal stent placed left side
Advance diet, IV fluids per vascular
Pain control, bowel regimen as needed
Patient with significant smoking history
Would recommend eventual lung cancer screening
No obvious abnormality on lung base on recent abdominal imaging except for platelike atelectasis
Ongoing discussion regarding alcohol and tobacco abstinence
Follow-up for withdrawal. Will clarify details with regards to last alcohol drink but per outpatient records, he seems to have cut down significantly
Recent hospital stay for acute necrotizing pancreatitis was reviewed
Patient would also benefit from outpatient sleep apnea screening
This will be an ongoing discussion
Reviewed with critical care nursing, pharmacy, respiratory care
Disposition efforts
Subjective Dataa
Subjective Data
Date of Service:
Date of Service: May 24, 2024
Subjective:
Patient is feeling well this morning. Feels much better since A-line has been discontinued. Denies chest pain, shortness of breath, abdominal pain.
Objective Data
Data Reviewed
Vital Signs / I&O / Oxygen:
Vital Signs
Temp Pulse Resp BP Pulse Ox
98.6 F 65 18 132/73 95
05/24/24 07:34 05/24/24 06:30 05/24/24 06:30 05/24/24 04:00 05/23/24 19:30
Intake and Output
05/23/24 05/24/24 05/25/24
06:59 06:59 06:59
Intake Total 4780 / 4880 100 / 100
Output Total 2964 / 2964
Balance 1816 / 1916 100 / 100
SaO2 95
Nasal Cannula flow liters per 2
minute
Physical Exam
General: Comfortable
HEENT: Normocephalic and Anicteric
Cardiovascular: S1-S2, Regular Rhythm and Murmur (n)
Respiratory: Wheeze (n), Crackles (n), Rhonchi (n) and Non-Labored Respirations
GI: Soft, Non Distended and Non Tender
Neurology: Awake, Alert and No Motor Deficits
Skin: Cyanosis (n), Jaundice (n) and Rash (n)
Labs/Micro/Reports
Lab Data
05/24/24 04:23
05/24/24 04:23
Laboratory Results
10/30/24
04:23
PT 14.7 H
INR 1.17
APTT 30.8
--- NOTE | 2024-05-24 08:26 | PTCARENOTE ---
Received patient from caustic cresylate shift superintendent RN. handoff at bedside. Patient is AAOx4. On room air, intermittent saturation check at 98%. Patient is in a sinus rhythm. He has a regular diet ordered, has ordered breakfast. Jimenez catheter draining yellow
urine. puncture sites to bilateral groins, dopper pulses present DP and PT. Dr. Perez in at time of handoff, ordered to discontinue a-line and jimenez. patient may then get OOB. Tolerating diet and liquids and will stop IVF. Will review other
orders, patient is able to make needs known.
--- NOTE | 2024-05-24 09:57 | PTCARENOTE ---
patient OOB, jimenez catheter discontinued
--- NOTE | 2024-05-24 15:15 | PTCARENOTE ---
Patient is now written for telemetry. Has been OOB. Fabian catheter discontinued. Patient is due to void.
--- NOTE | 2024-05-24 16:47 | CM ---
Patient seen at bedside with present. Patient sleepy, per nurse no sleep recently. Patient and indicate that home is a bilevel and he has no DME at home. Patient PCP is Dr. Bacon and he uses the [facility] on [facility]. Patient
stated that he plans to go home with no needs. CM will continue to follow for discharge planning needs.
PLan; home with VN vs no needs.
[2024-05-24] MEDS: ZOFRAN 4 MG IV (17:33)
[2024-05-24] MEDS: TYLENOL 650 MG PO (18:43)
--- NOTE | 2024-05-24 20:00 | PTCARENOTE ---
Received report from keylakssamreen RN, assumed care of patient at 1900. Patient Ox3, drowsy but arousable, SB with PVCs on monitor, rates 40's-50's, asymptomatic. Pedal pulses positive via doppler, +1 BLLE edema. SBP elevated 150-160, asymptomatic. On
RA, lung sounds diminished throughout. Abdomen round and obese, voiding clear yellow urine into urinal at bedside. Patient with B/L groin sites s/p EVAR, approximated with surgical glue present, soft and flat. Neurovascular checks as documented, see
worklist. Patient agitated with nursing care/assessment and wants to be left alone to sleep. Reinforced education on clinical course while here and current ICU status level of care. Call romero within reach, VSS, care ongoing.
[2024-05-25] VITALS (10 sets, daily range): BP systolic 149–172; BP diastolic 78–93; BMI 32.6
--- NOTE | 2024-05-25 | PTCARENOTE ---
No changes to physical assessment. Patient resting with minimal interruptions as requested. Voiding in urinal. BP remains elevated 140-170's and bradycardic with HR in 40's, asymptomatic. Call romero within reach, care ongoing.
[2024-05-25 04:48] LABS: Hematocrit 31.7 % (39.0-52.0); Hemoglobin 11.1 g/dL (13.0-18.0); Mean Corpuscular Hgb 30.6 pg (27.0-31.0); Mean Corpuscular Volume 87.3 fL (80.0-94.0); Mean Platelet Volume 11.1 fL (7.4-10.4); Platelet Count 96 10^3/uL (130-400); Red Blood Cell Count 3.63 10^6/uL (4.70-6.10); Red Cell Dist. Width 12.8 % (11.5-14.5); White Blood Cell Count 8.6 10^3/uL (4.8-10.8)
[2024-05-25 04:53] LABS: Blood Urea Nitrogen 10 mg/dl (9-20); Calcium 8.6 mg/dl (8.4-10.2); Carbon Dioxide 19 mmol/L (22-30); Chloride 107 mmol/L (98-107); Estimated Creatinine Clearance 76 ml/min; Glucose 114 mg/dl (70-99); Sodium 138 mmol/L (135-145); eGFR > 60.00
[2024-05-25] MEDS: ASPIR LOW (ENTERIC COATED) 81 MG PO (07:32)
[2024-05-25] MEDS: CRESTOR 20 MG PO (07:32)
[2024-05-25] MEDS: PLAVIX 75 MG PO (07:32)
[2024-05-25] MEDS: HEPARIN 5000 UNITS SC (07:32)
--- NOTE | 2024-05-25 07:41 | W.PN.INTV ---
Addendum entered and electronically signed by Angelica Solo MD 05/25/24 08:56:
Reviewed importance of lung cancer screening and prior abnormal imaging finding with both patient and at bedside
They understand the importance of follow-up with primary
I left my information in the event pulmonary follow-up is requested
All questions answered
Original Note:
Today's Communication / Plan
Recommendations
Out of bed to chair, ambulate
For disposition today
Outpatient follow-up regarding BMP, renal function
Follow-up instructions from pulmonary standpoint left in chart
Transfer to telemetry
We will sign off. Please call with questions
Assessment
-
64-year-old male with history of alcoholic pancreatitis in February 2024 at which time he had a complex pseudocyst with necrotizing features on MRI. Patient was discharged 03/27/2024. He was also noted to have a 5.5 cm infrarenal abdominal aortic
aneurysm which terminated at the aortic bifurcation. Patient is now status post EVAR 05/23/2024. We are asked to help from critical care standpoint
S/p EVAR 05/23/2024
5.5 cm infrarenal abdominal aortic aneurysm
balloon angioplasty/stent left renal artery
Recent acute necrotizing pancreatitis
Complex pseudocyst
February 2024
Moderate alcohol use, 1-2 drinks a day
Mild hyperglycemia
History of thrombocytopenia, likely secondary to alcohol use
Conditions present prior to admission
Hypertension/hyperlipidemia
[id number] history of smoking, quit February 2024
Family history of abdominal aortic aneurysm (father)
Suspected sleep disordered breathing, per history
Plan/recommendations
At this time, patient appears to be comfortable. He is without complaints
Hemodynamically stable
Urine output adequate, creatinine stable
Denies leg pain. Abdominal exam benign
Moving forward
Continue with management per vascular protocol
Aspirin, Plavix
EKG sinus bradycardia, asymptomatic
Chest x-ray unremarkable, Mild bibasilar atelectasis
Incentive spirometry
Urine output adequate, creatinine 1.1
Balloon angioplasty and renal stent placed left side
Tolerating diet
Pain control, bowel regimen as needed
Patient with significant smoking history
Would recommend eventual lung cancer screening
No obvious abnormality on lung base on recent abdominal imaging except for platelike atelectasis
Ongoing discussion regarding alcohol and tobacco abstinence
Recent hospital stay for acute necrotizing pancreatitis was reviewed
Patient would also benefit from outpatient sleep apnea screening
This will be an ongoing discussion. Information left in chart
Reviewed with critical care nursing, pharmacy, respiratory care
Disposition efforts
Patient transferred to telemetry. We will sign off. Please call with questions
Subjective Dataa
Subjective Data
Date of Service:
Date of Service: May 25, 2024
Subjective:
Patient sitting in chair, without complaints. No issues overnight. Heart rate down in the 40s to 60s, asymptomatic. Denies chest pain, nausea, abdominal pain, shortness of breath
Objective Data
Data Reviewed
Vital Signs / I&O / Oxygen:
Vital Signs
Temp Pulse Resp BP Pulse Ox
98.1 F 46 11 168/93 94
05/25/24 07:00 05/25/24 06:00 05/25/24 06:00 05/25/24 06:00 05/25/24 04:03
Intake and Output
05/24/24 05/25/24 05/26/24
06:59 06:59 06:59
Intake Total 4780 / 4880 1550 / 1550
Output Total 2964 / 3014 3225 / 3425 200 / 200
Balance 1816 / 1866 -1675 / -1875 -200 / -200
SaO2 94
Nasal Cannula flow liters per 2
minute
Physical Exam
General: Comfortable
HEENT: Normocephalic and Anicteric
Cardiovascular: S1-S2, Regular Rhythm and Murmur (n)
Respiratory: Wheeze (n), Crackles (n), Rhonchi (n) and Non-Labored Respirations
GI: Soft, Non Distended and Non Tender
Neurology: Awake, Alert and No Motor Deficits
Skin: Cyanosis (n), Jaundice (n) and Rash (n)
Labs/Micro/Reports
Lab Data
05/25/24 04:09
05/25/24 04:09
--- NOTE | 2024-05-25 07:47 | PTCARENOTE ---
report received, assessments per work list. 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 'I can't take it anymore,I've got to get out of here'. vascular team in, tele orders. per team, to be discharged
today. out of bed to chair, call romero in reach. refusing to order breakfast, 'my is bringing something, the food here made me feel sick'
--- NOTE | 2024-05-25 07:55 | W.PN.VS ---
Today's Communication / Plan
-
Patient seen and examined at bedside with Dr. Addy Perez, below plan reviewed with attending.
Assessment/Plan
-
Assessment: 64-year-old male POD #2 Endovascular aortic aneurysm repair with Endologix [place] device, occlusion of right renal artery
Plan:
Repeat BMP with normal creatinine level, will repeat BMP in 1 to 2 weeks in the outpatient setting
Encourage incentive spirometry
Discharge today
Subjective Data
-
Date of Service: May 25, 2024
Patient seen and examined at bedside, offers no complaints. Denies nausea, vomiting, fever, and chills. Reports minimal to no pain at bilateral groins. Eager for discharge to home.
Objective Data
-
Vital Signs
Temp Pulse Resp BP Pulse Ox
98.1 F 46 11 168/93 94
05/25/24 07:00 05/25/24 06:00 05/25/24 06:00 05/25/24 06:00 05/25/24 04:03
Intake and Output
05/24/24 05/25/24 05/26/24
06:59 06:59 06:59
Intake Total 4780 / 4880 1550 / 1550
Output Total 2964 / 3014 3225 / 3425 200 / 200
Balance 1816 / 1866 -1675 / -1875 -200 / -200
Intake:
Oral fluids 1380 / 1380 1350 / 1350
IV fluids (Total) 3300 / 3400 200 / 200
Bolus 1000 / 1000 0 / 0
Nss 1,000 ml @ 100 mls/hr IV . 2200 / 2300 200 / 200
Q10H SHANE Rx#:[id number]
normal saline 100 / 100 0 / 0
IV piggybacks 100 / 100
Output:
Urine, Fabian 2964 / 3014 350 / 350
Urine, Voided 2875 / 3075 200 / 200
Lab Results
05/25/24 04:09
05/25/24 04:09
Calcium 8.6 mg/dl (8.4-10.2) 05/25/24 04:09
Physical Exam
-
AAOx3, no apparent distress
No tachycardia
No dyspnea on room air
ABD soft, nontender, nondistended
Bilateral groin sites CDI, Exofin intact, no evidence of hematoma
Bilateral feet warm, +1 palpable DP pulses
[2024-05-25] MEDS: TYLENOL 650 MG PO (08:15)
--- NOTE | 2024-05-25 09:22 | W.DS.TRANS ---
DC Summary - Nurse Advisor
-
Discharge Instructions:
Discharge Diagnosis/Procedures Endovascular aortic aneurysm repair with
Endologix [place] device, occlusion of right renal
artery
Diet As tolerated
Activity No strenuous activity
Driving Restrictions No driving for 3 days
Bathing Restrictions OK to Shower
Blood Work Repeat basic metabolic panel blood work (lab
slip was provided) to reevaluate kidney function
Instructions:
Stand-Alone Forms: DC Instr - Vascular OR
Changes to Home Medications: Yes
Discharge Medications:
DC Medications w/original date entered in [employer]
aspirin 81 mg tablet,delayed release 81 mg PO DAILY #30 tabs 03/27/24
rosuvastatin 20 mg tablet 20 mg PO DAILY High Cholesterol 05/15/24
Home Medication Changes
Added: clopidogrel 75 mg tablet 75 mg PO DAILY #90 tabs 05/25/24
Pending Results: No
== END 2024-05-25 10:28 | disposition home or self-care (01) | DRG 269 ==
LOC: ICU 06:08
PROVIDERS: Nurse Practitioner; ADMITTING PHYSICIAN Surgery Vascular Surgery; CONSULT PHYSICIAN Internal Medicine Critical Care Medicine; FAMILY PHYSICIAN Family Medicine
PROC: 047A3DZ Dilation of Left Renal Artery with Intraluminal Device, Percutaneous Approach (ICD-10-PCS; 2024-05-23)
PROC: 04V03DZ Restriction of Abdominal Aorta with Intraluminal Device, Percutaneous Approach (ICD-10-PCS; 2024-05-23)
DX: I71.43 Infrarenal abdominal aortic aneurysm, without rupture (principal); N28.0 Ischemia and infarction of kidney; J98.11 Atelectasis; K86.3 Pseudocyst of pancreas; I97.88 Other intraoperative complications of the circulatory system, not elsewhere classified; Y83.8 Other surgical procedures as the cause of abnormal reaction of the patient, or of later complication, without mention of misadventure at the time of the procedure; I10 Essential (primary) hypertension; E78.00 Pure hypercholesterolemia, unspecified; R73.9 Hyperglycemia, unspecified; D69.59 Other secondary thrombocytopenia; F10.20 Alcohol dependence, uncomplicated; G89.29 Other chronic pain; M54.9 Dorsalgia, unspecified; Z87.19 Personal history of other diseases of the digestive system; Z87.891 Personal history of nicotine dependence; Z79.82 Long term (current) use of aspirin
CPT/HCPCS: 34705; 34713; 36415; 71045; 75625; 76937; 80048; 85025; 85027; 85610; 85730; 86850; 86900; 86901; 93005; 99406; C1725; C1760; C1769; C1874; C1887; C1892; C1894; Q9967

== ENCOUNTER → 2024-06-26 12:42 | Outpatient (REF) | payer OTHER, SELFPAY | LOC: HWRAD 12:42 | PROVIDERS: ATTENDING PHYSICIAN Registered Nurse; FAMILY PHYSICIAN Family Medicine; REFERRING PHYSICIAN Internal Medicine Gastroenterology | DX: I71.43 Infrarenal abdominal aortic aneurysm, without rupture (principal) | CPT/HCPCS: 74176 ==

== ENCOUNTER → 2024-07-06 09:01 | Outpatient (REF) | payer OTHER, SELFPAY | LOC: RAD 09:01 | PROVIDERS: ATTENDING PHYSICIAN Registered Nurse; FAMILY PHYSICIAN Family Medicine | DX: I71.43 Infrarenal abdominal aortic aneurysm, without rupture (principal) | CPT/HCPCS: 76770 ==

== ENCOUNTER → 2024-07-21 08:17 | Outpatient (REF) | payer OTHER, SELFPAY | LOC: MRI 3T 08:17 | PROVIDERS: ATTENDING PHYSICIAN Internal Medicine Gastroenterology; FAMILY PHYSICIAN Family Medicine | DX: K85.91 Acute pancreatitis with uninfected necrosis, unspecified (principal) | CPT/HCPCS: 74183; A9575 ==

== ENCOUNTER → 2024-11-23 12:30 | Outpatient (REF) | payer OTHER, SELFPAY | LOC: PAVMRI 12:30 | PROVIDERS: ATTENDING PHYSICIAN Internal Medicine Gastroenterology; FAMILY PHYSICIAN Family Medicine | DX: K85.91 Acute pancreatitis with uninfected necrosis, unspecified (principal) | CPT/HCPCS: 74183; A9575 ==

== ENCOUNTER → 2024-12-25 11:15 | Outpatient (REF) | payer OTHER, SELFPAY | LOC: HWRAD 11:15 | PROVIDERS: ATTENDING PHYSICIAN Surgery Vascular Surgery; FAMILY PHYSICIAN Family Medicine | DX: I71.43 Infrarenal abdominal aortic aneurysm, without rupture (principal) | CPT/HCPCS: 74176 ==

== ENCOUNTER → 2025-01-10 09:13 | Outpatient (REF) | payer OTHER, SELFPAY | LOC: DHVS 09:13 | PROVIDERS: ATTENDING PHYSICIAN Surgery Vascular Surgery; FAMILY PHYSICIAN Family Medicine | DX: I71.43 Infrarenal abdominal aortic aneurysm, without rupture (principal) | CPT/HCPCS: 76770 ==

== ENCOUNTER 2025-05-12 22:02 | Inpatient (IN) | payer OTHER, SELFPAY ==
[2025-05-12 19:53] VITALS: BP 174/77
[2025-05-12 19:55] VITALS: BP 178/104
[2025-05-12 20:11] LABS: Hematocrit 41.6 % (39.0-52.0); Hemoglobin 14.3 g/dL (13.0-18.0); Mean Corp Hgb Conc. 34.4 g/dL (33.0-37.0); Mean Corpuscular Volume 84.0 fL (80.0-94.0); Nucleated Red Blood Cells % 0 % (-); Platelet Count 157 10^3/uL (130-400); Red Cell Dist. Width 13.6 % (11.5-14.5)
[2025-05-12] MEDS: ZOFRAN 4 MG IV (20:13)
[2025-05-12] MEDS: DILAUDID 0.5 MG IV ×2 (20:16→22:02)
[2025-05-12] MEDS: NSS 500 IV (20:17)
[2025-05-12 20:25] VITALS: BMI 25.7
[2025-05-12 20:40] LABS: ALT (SGPT) 16 U/L (0-50); AST (SGOT) 20 U/L (17-59); Albumin 4.9 g/dl (3.5-5.0); Alkaline Phosphatase 112 U/L (38-126); Blood Urea Nitrogen 15 mg/dl (9-20); Calcium 9.7 mg/dl (8.4-10.2); Carbon Dioxide 16 mmol/L (22-30); Chloride 108 mmol/L (98-107); Estimated Creatinine Clearance 64 ml/min; Glucose 129 mg/dl (70-99); Potassium 3.8 mmol/L (3.5-5.1); Sodium 137 mmol/L (135-145); Total Protein 7.8 g/dl (6.3-8.2); eGFR > 60.00
[2025-05-12 20:50] LABS: Troponin I < 0.012 ng/ml
[2025-05-12 20:53] LABS: Lipase 1963 U/L (23-300)
[2025-05-12 21:00] VITALS: BP 147/41
--- NOTE | 2025-05-12 21:13 | ED.GENMED ---
History of Present Illness
General
Chief Complaint: Abdominal Pain
Source: patient
Exam Limitations: none
Time Seen by Provider: 05/12/25 20:10
Nursing documentation reviewed up to this point in time: agreed with
History of Present Illness
History of Present Illness:
Patient presents to ED secondary to sudden onset of upper abdominal pain associated with nausea sensation, shortly prior to arrival in ED. Patient states that his symptoms are similar to pancreatitis that he has experienced in the past. Denies
vomiting. Denies fever or chills. Denies trauma. Patient states that his previous pancreatitis was attributed to alcohol. Recently, patient states that he does not drink alcohol. However, he does admit to having had glass of wine last night.
Denies recent change in medications or diet. Denies recent illness.
Past History
Past History
ED Past Medical History: None; Negative Asthma, HTN, Hypercholesterolemia or NIDDM
ED Past Surgical History: Orthopedic (Right knee surgery, ) and Other (Skin graft left ankle)
Social History
Tobacco: Former smoker
Alcohol: Daily (Beer 6 pack or more)
Personal:
Living: with family
Review of Systems
Review of Systems
Allergies reviewed?: Yes
All Other Systems: ROS reviewed and negative except as documented in HPI and ROS
Constitutional: Reports no symptoms; Denies fever
Cardiac: Reports no symptoms
ABD/GI: Reports abdominal pain and nausea; Denies vomiting
Musculoskeletal: Reports no symptoms
Skin: Reports no symptoms
Neurological: Reports no symptoms
Phy Exam
Physical Exam
Physical Exam:
Physical Exam
General: moderate painful distress, not acutely ill. afebrile
Head: nc/at. eomi
Neck: supple. no meningeal signs
Heart: s1/s2 regular rate and rhythm
Lungs: no acute respiratory distress. clear bilaterally
Abdomen: normal bowel sounds. mild epigastric/RUQ tenderness to palpation. no distention.
Neuro: alert and oriented x 3. no focal neurological deficits
Skin: no rash
Psychiatric: well kept. interactive and cooperative
Extremities: no edema. no calf tenderness.
Course
Orders/Labs/Results
Orders:
Orders
05/12/25 Dinner
NPO
Allow oral meds: Yes
Allow clear liquids: Sips of Clears
05/12/25 19:51
EKG [Electrocardiogram (*1)] Urgent
Reason for Study: Abdominal Pain
EKG- Treatment ONCE
05/12/25 20:02
IV Insert/Care/Rem.- Treatment PRN
05/12/25 20:05
Alcohol Urgent
Complete Blood Count/With Diff Urgent
Comprehensive Metabolic Panel Urgent
Lipase Urgent
Troponin I Urgent
05/12/25 20:11
Ondansetron Injectable [Zofran] 4 mg .ROUTE .STK-MED ONE
05/12/25 20:12
Ondansetron Injectable [Zofran] 4 mg IV NOW STA
05/12/25 20:13
Add On- LAB Urgent
Tests Added?: alcohol
HYDROmorphone [Dilaudid] 0.5 mg .ROUTE .STK-MED ONE
05/12/25 20:14
0.9% Sodium Chloride 500 ml [Nss] 500 ml IV BOLUS
HYDROmorphone [Dilaudid] 0.5 mg IV NOW STA
05/12/25 20:16
HYDROmorphone [Dilaudid] 0.5 mg IV NOW STA
05/12/25 21:30
Abdomen/Pelvis w Contrast CT [CT Abd/pelvis W Iv Cont] Urgent
Comment:
Reason For Exam: pancreatitis conformation
05/12/25 21:31
Admit/Transfer Patient As Directed
Co-Sign Provider:
Level of Care: Inpatient admission
Assign to:: Medical/Surgical
Physician / Group: veldanda
Diagnosis: alcoholic pancreatitis
Reason for Hospitalization: alcoholic pancreatitis
Expected length of stay greater than two midnights?: Yes
ELOS- Estimated Length of Stay in days: 2
I certify the patient meets the requirements for IP care: Yes
Code Status As Directed
Resuscitation Status: Full Code
PRN Pain Medication Management As Directed
May give lesser potent ordered pain med per pt: Yes
preference::
Protocol:: Medication orders for pain may be administered in a
manner that supports deferring to patient preference
when the pt is:
- Requesting an ordered lesser potent pain medication.
Least to most potent pain medications are defined
as: acetaminophen < NSAID < tramadol < opioids
(morphine, oxycodone, hydromorphone).
- Requesting a lesser dose of the same medication IF
ORDERED.
- Requesting a less intrusive route of administration
if both routes are prescribed by the provider (PO <
IV).
05/12/25 21:38
HYDROmorphone [Dilaudid] 0.5 mg IV Q4HPRN PRN
05/12/25 22:00
Lactated Ringers [Lr] 1,000 ml IV 150 mls/hr
05/12/25 22:47
Ondansetron Injectable [Zofran] 4 mg IV Q6HPRN PRN
05/12/25 22:47
Activity As Directed
Activity Level: As Tolerated
Vital Signs As Directed
Frequency: Per unit guidelines
DX Deep Vein Thrombosis Video Routine
05/13/25 02:40
Complete Blood Count/With Diff IN AM
Comprehensive Metabolic Panel IN AM
05/13/25 08:00
Aspirin Low Dose EC [Aspir Low (Enteric Coated)] 81 mg PO DAILY
Clopidogrel Bisulfate [Plavix] 75 mg PO DAILY
Heparin 5,000 units SC Q12
Abnormal Lab Results
05/12/25
20:05
WBC 11.6 H 10^3/uL
(4.8-10.8)
Abs Immat Gran (auto) 0.1 H 10^3/uL
(0-0.05)
Absolute Neuts (auto) 8.8 H 10^3/uL
(1.4-6.5)
Neutrophils % 76.4 H %
(42.2-75.2)
Lymphocytes % 16.7 L %
(20.5-51.1)
Chloride 108 H mmol/L
(98-107)
Carbon Dioxide 16 L mmol/L
(22-30)
Glucose 129 H mg/dl
(70-99)
Lipase 1963 H* U/L
(23-300)
05/12/25 20:05
05/12/25 20:05
Vital Signs
Initial and Last Documented VS:
Initial Vital Signs
Temp Pulse Resp BP Pulse Ox
97.9 F 58 18 174/77 100
05/12/25 19:53 05/12/25 19:53 05/12/25 19:53 05/12/25 19:53 05/12/25 19:53
Last Documented Vital Signs
Temp Pulse Resp BP Pulse Ox
99 F 83 22 140/80 96
05/13/25 15:55 05/13/25 16:45 05/13/25 16:45 05/13/25 16:30 05/13/25 16:45
MDM/Problems Addressed
MDM/Problems Addressed:
History and exam consistent with likely recurrent pancreatitis. Patient otherwise remains hemodynamically stable. Patient will be admitted for further evaluation and treatment, including continue IV hydration along with pain control
*Pulse Oximetry
SaO2: 100
Oxygen Mode of Delivery: Room air
Patient hypoxic: no
*Critical Care Note
Total Time (30-74mins, 75-104mins- exclusive of procedures): Not Applicable
ED Attending Note
-
Portions of this chart may have been created with voice recognition software.� Occasional wrong word or��sound alike� substitutions may have occurred due to the inherent limitations of voice recognition software.
Discharge Plan
Departure
Patient Disposition: Admit
Date of Disposition: 05/12/25
Time of Disposition: 21:16
Presentation/result/management discussed w/ accepting MD/DO: Hospitalist
Discharge Problem:
Pancreatitis
Interventions
Interventions:
*Risk Screen - Suicide Last Done: 05/12/25 22:58
*General Assessment Last Done: 05/12/25 20:05
*Neglect/Abuse Screening Last Done: 05/12/25 20:05
*ED- Fall Risk Assessment Last Done: 05/12/25 20:05
*ED COVID-19 Vaccine History Last Done: 05/12/25 22:58
*ED Influenza Vaccine History Last Done: 05/12/25 20:05
*Nursing Disposition Last Done: 05/12/25 22:42
BI-Mnfpbg-Xxopmxisvr Assessment Last Done: 05/12/25 20:05
Discharge Date and Time
Discharge Date/Time: 05/12/25 22:43
[2025-05-12] MEDS: LR 1000 IV ×2 (21:18→22:55)
--- NOTE | 2025-05-12 21:34 | HPS.HSE ---
Addendum entered and electronically signed by Cecil Das MD 05/13/25 00:07:
Vascular looked at image and didn't see signs of impending rupture and recommends this to be addressed during this admission.
Addendum entered and electronically signed by Cecil Das MD 05/13/25 00:03:
Hold Aspirin and Plavix.
Addendum entered and electronically signed by Cecil Das MD 05/12/25 23:59:
CT abdomen pelvis shows mild acute interstitial edematous pancreatitis. There is large splenic artery aneurysm which is largely thrombosed measuring 6.5 x 5.6 x 8 cm in size previously 5.9 x 4.6 x 4.8 cm in size. There is increased density within
the mural thrombus may signify intramural hemorrhage. Margins of the aneurysm are also more irregular than on previous exam. Mild infiltration of the fat surrounding the aneurysm. 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
for instability and possibly impending rupture.
Vascular surgery consulted.
Will upgrade patient to IMU.
Original Note:
Family Physician
-
Family Physician: Amish Jolley
Chief Complaint
-
abdominal pain
History of Present Illness
65-year-old male past medical history of alcoholic pancreatitis, alcohol use disorder, aortic aneurysm status post EVAR, hypertension, hyperlipidemia, suspected sleep apnea, former smoker, presenting with sudden onset of upper abdominal pain
slightly radiating to the back, associate with nausea shortly prior to arrival. Symptoms are similar to pancreatitis which she has had in the past. Denies vomiting. Denies fevers but had chills. Denies trauma. He denies drinking any alcohol use
regularly but did have a glass of wine last night. He does feel short of breath secondary to the abdominal pain. Denies any new medications.
Medical History
Past Medical History
Past Medical History: Reports Other (alcoholic pancreatitis, alcohol use disorder, aortic aneurysm status post EVAR, hypertension, hyperlipidemia, suspected sleep apnea, former smoker)
Past Surgical History: Reports None
Social History
Tobacco: Former Smoker
Alcohol: Occasional
Drug: None
Family History
Family History: Not pertinent
Allergies / Home Medications
Allergies reflects when Allergies were last updated in [employer].
Home Medications with original date entered in [employer]
Allergy/Medication List:
Allergies
Allergy/AdvReac Type Severity Reaction Status Date / Time
Penicillins Allergy Unknown Verified 05/23/24 06:26
Home Medications
aspirin 81 mg tablet,delayed release 81 mg PO DAILY #30 tabs 03/27/24
clopidogrel 75 mg tablet 75 mg PO DAILY #90 tabs 05/25/24
atorvastatin DAILY 05/12/25
potassium chloride 10 mEq tablet,extended release 80 meq PO DAILY 05/12/25
valsartan DAILY 05/12/25
Review of Systems
-
History Source: Patient
A 12 point ROS was completed and negative except as noted: Yes
Constitutional: Reports No Symptoms
EENT: Reports No Symptoms
Respiratory: Reports See HPI
Cardiac: Reports No Symptoms
Abdomen/GI: Reports See HPI
: Reports No Symptoms
Musculoskeletal: Reports No Symptoms
Skin: Reports No Symptoms
Neurological: Reports No Symptoms
Endocrine: Reports No Symptoms
Hematologic/Lymphatic: Reports No Symptoms
Psych: Reports No Symptoms
Physical Exam
Vital Signs
Vital Signs
Temp Pulse Resp BP Pulse Ox
97.9 F 56 13 178/104 100
05/12/25 19:53 05/12/25 20:45 05/12/25 20:45 05/12/25 19:55 05/12/25 21:14
Physical Exam
General: Well Developed, Well Nourished and No Apparent Distress
HEENT: NormoCephalic, Moist mucous membranes and Atraumatic
Respiratory: Clear
Cardiac: S1/S2 and Regular Rhythm; No Murmur or Rub
GI: Soft, Non Distended, Normal Bowel Sounds and Tender (epigastric ); No Organomegaly
Rectal: Deferred by Provider
Musculoskeletal: No Clubbing, No Cyanosis and No Edema
Skin: No Rash
Neuro: Nonfocal/grossly intact
Laboratory Results
-
05/12/25 20:05
05/12/25 20:05
Laboratory Results
Total Bilirubin 1.3 mg/dl (0.2-1.3) 05/12/25 20:05
AST 20 U/L (17-59) 05/12/25 20:05
ALT 16 U/L (0-50) 05/12/25 20:05
Alkaline Phosphatase 112 U/L (38-126) 05/12/25 20:05
Troponin I < 0.012 ng/ml 05/12/25 20:05
Lipase 1963 U/L (23-300) H* 05/12/25 20:05
Data Reviewed
-
Lab Data: Labs Reviewed by me
Old Records: Reviewed
Impression/Plan
-
IMPRESSION:
PLAN:
# Recurrent acute alcoholic pancreatitis
-Leukocytosis
- Lipase 2000
-Check CT abdomen pelvis
- N.p.o.
- IV fluids with lactated Ringer's
- Dilaudid, Zofran as needed
# Chronic non-anion gap metabolic acidosis
# CKD 2
- Relatively stable since last year
History of alcohol use disorder
- No longer drinks alcohol except for last night when he had 1 glass of wine
History of infrarenal abdominal aortic aneurysm status post EVAR
- Continue aspirin and Plavix
Essential hypertension
- Continue valsartan
Hyperlipidemia
- Continue statin
Suspected sleep apnea
Former smoker
Full code
DVT prophylaxis�heparin
N.p.o.
[2025-05-12 22:06] VITALS: BP 164/81
[2025-05-12 22:08] VITALS: BP 164/81
[2025-05-12 22:56] VITALS: BMI 25.6
[2025-05-12 22:57] VITALS: BP 175/98
[2025-05-13] VITALS (43 sets, daily range): BP systolic 129–198; BP diastolic 72–96; BMI 25.4
[2025-05-13] MEDS: ZOFRAN 4 MG IV ×3 (00:06→17:36)
[2025-05-13] MEDS: DILAUDID 0.5 MG IV ×5 (01:19→21:42)
[2025-05-13 03:03] LABS: Hematocrit 39.3 % (39.0-52.0); Hemoglobin 13.8 g/dL (13.0-18.0); Mean Corp Hgb Conc. 35.1 g/dL (33.0-37.0); Mean Corpuscular Volume 84.9 fL (80.0-94.0); Nucleated Red Blood Cells % 0 % (-); Platelet Count 153 10^3/uL (130-400); Red Cell Dist. Width 13.4 % (11.5-14.5)
[2025-05-13 03:04] LABS: INR 1.06; PT 14.1 Sec (11.4-14.6)
[2025-05-13 03:05] LABS: APTT 28.8 Sec (23.4-35.0)
[2025-05-13 03:17] LABS: ALT (SGPT) 18 U/L (0-50); AST (SGOT) 24 U/L (17-59); Albumin 4.6 g/dl (3.5-5.0); Alkaline Phosphatase 97 U/L (38-126); Blood Urea Nitrogen 12 mg/dl (9-20); Calcium 9.4 mg/dl (8.4-10.2); Carbon Dioxide 21 mmol/L (22-30); Chloride 106 mmol/L (98-107); Estimated Creatinine Clearance 86 ml/min; Glucose 159 mg/dl (70-99); Potassium 3.7 mmol/L (3.5-5.1); Sodium 135 mmol/L (135-145); Total Protein 7.3 g/dl (6.3-8.2); eGFR > 60.00
[2025-05-13] MEDS: DILAUDID 1 MG IV (03:34)
--- NOTE | 2025-05-13 03:42 | PTCARENOTE ---
Pt received from 4W. HR SB/SR on telemetry. 98% RA. Pt describes feeling chilled; Pt afebrile. Pt reports pain 6/10 unrelieved by prior pain medication (see MAR). Pt guarding abdomen. 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
Spoke w/ pt regarding home meds. Pt provided list to RN, Amlodipine added to home med list. Pt also states he does take a separate valsartan pill but unsure of the dose and it was not listed on pt's own list.
[2025-05-13] MEDS: NORVASC 10 MG PO (04:55)
[2025-05-13] MEDS: APRESOLINE 10 MG IV (06:11)
--- NOTE | 2025-05-13 06:19 | PTCARENOTE ---
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 10mg amlodipine PO ordered and administered. Pressures remaining elevated - 10mg IV hydralazine ordered and administered.
[2025-05-13] MEDS: DIOVAN 80 MG PO (07:23)
[2025-05-13] MEDS: CARDENE 200 IV ×3 (07:23→21:38)
--- NOTE | 2025-05-13 07:55 | CON.VAS ---
Consultation
Consultation Request
Reason for Consultation: Splenic artery aneurysm
Medical History
-
History of Present Illness:
65 yo M with history of pancreatitis and AAA repair, presented yesterday with diffuse abdominal pain. Patient stated it was similar to a prior episode of pancreatitis. Pain is not localized. Admits to having 1 glass of wine last night. Has history
of pancreatic cyst followed by GI who had recommended eventually 'cleaning it out' per the patient. Also history of endovascular AAA repair with L renal artery stent.
Past Medical History
Past Medical History: Other (AAA, pancreatitis)
Past Surgical History: Other (endovascular AAA repair)
Social History
Tobacco: Former Smoker
Alcohol: Occasional
Family History
Family History: Reviewed & Not Pertinent
Allergies / Home Medications
Allergy/AdvReac Type Severity Reaction Status Date / Time
Penicillins Allergy Unknown Verified 05/23/24 06:26
�Medication �Instructions �Recorded �Confirmed �Type
aspirin 81 mg tablet,delayed 81 mg PO DAILY #30 tabs 03/27/24 05/12/25 Rx
release
clopidogrel 75 mg tablet 75 mg PO DAILY #90 tabs 05/25/24 05/12/25 Rx
atorvastatin 80 mg DAILY 05/12/25 05/13/25 History
potassium chloride 10 mEq 80 meq PO DAILY 05/12/25 05/12/25 History
tablet,extended release
valsartan DAILY 05/12/25 History
amlodipine 10 mg tablet 10 mg PO DAILY 05/13/25 05/13/25 History
Review of Systems
-
History Source: Patient
All other systems: Negative unless noted
Physical Exam
Vital Signs
Temp Pulse Resp BP Pulse Ox
98.4 F 82 19 179/90 98
05/13/25 07:48 05/13/25 07:45 05/13/25 07:45 05/13/25 07:31 05/13/25 07:45
Lab Results
05/13/25 02:40
05/13/25 02:40
Troponin I < 0.012 ng/ml 05/12/25 20:05
Physical Exam
General: Well Developed, Well Nourished and No Apparent Distress
HEENT: Normocephalic
Respiratory: Clear
Cardiac: S1/S2 and Regular Rhythm
GI: Soft and Other (minimal tenderness to palpation. non distended. NO tenderness directly on aneurysm)
Skin: Warm
Neuro: AO x 3
Psych: Calm
Pulses: Bilateral Femoral: +2
Assessment / Plan
-
I personally reviewed the patient's imaging. He has had several non con CT scans and MRIs which show a collection inferior to the pancreas that has grown in size over the past several months. On yesterday's CT scan contrast was administered
revealing this is a partially thrombosed large splenic artery aneurysm or pseudoaneurysm. Given the size and rapid growth I have recommended repair with embolization this admission. He does not want this repair done tomorrow as he say he feels too
lousy, but I would recommend keeping him NPO after midnight at least as this can be done via endovascular approach. Patient educated to let staff know immediately should his abdominal pain or back pain worsen.
Data Reviewed
-
CT Scan: Image Personally Visualized and interpreted and Discussed with Patient
--- NOTE | 2025-05-13 08:00 | PTCARENOTE ---
report received from previous RN. Pt resting in bed, AAOX3. pt reports pain- abdomen under ribcage. SR on telemetry heart rate in 80s. pulses palpable. no edema. pt on room air, sat 97%. lung sounds diminished in bases. voiding in urinal. cardene
started to keep SBP 140-160 per orders. pt updated on plan of care. see worklist for full nursing assessment and interventions.
--- NOTE | 2025-05-13 08:15 | W.PN.HOSP.TC ---
Addendum entered and electronically signed by Marcos Garibay MD 05/13/25 11:50:
#Fluid collection along the tail of the pancreas compatible with a pseudocyst
Original Note:
Today's Communication/Plan
-
see PN
Assessment / Plan
Assessment / Plan
65yo M with PMHX of ASCVD, HTN, HLD, AAA s/p EVAR, Hx of pancreatitis came with overnight severe abdominal pain, radiating to the back and constant. Patient had one glass of wine night before. CT showed acute pancreatitis. ALso accidental findings
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
A/P:
#Acute pancreatitis
CT without gall stones
Ca WNL
check lipids
Pain mgmt
IVF
Previosuly followed by GI as outpatient due to concern for pancreatic cyst.
#Leukocytosis
#Bilirubinemia
check US abd
check direct Bili, LDH, retics
cannot exclude cholelithiasis, will elevated bili, abd pain and leukocytosis - GI consult
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
#HTN urgency
control BP to kep <160 systolic. Nicardipine drip
Avoid anticoagulation, antiplatelets
VascSX conssult
ICU admission
#HLD
cont statin
DVT ppx SCDs
Full code
I have spent at least 76min of critical care time, reviewing chart, test reuslts, communication with cconsultants and providing direct patient care
Anticipated Discharge: > 48 hours
Subjective/Interval History
-
Date of Service: May 13, 2025
Objective Data
-
Labs:
Laboratory Results
05/12/25 05/13/25
20:05 02:40
WBC 17.4 H
Hgb 13.8
Hct 39.3
Plt Count 153
PT 14.1
INR 1.06
APTT 28.8
Sodium 137 135
Potassium 3.8 3.7
Chloride 108 H 106
Carbon Dioxide 16 L 21 L
BUN 15 12
Creatinine 1.2 0.9
Glucose 129 H 159 H
Calcium 9.7 9.4
Total Bilirubin 1.3 1.9 H
AST 20 24
ALT 16 18
Alkaline Phosphatase 112 97
Vital Signs:
Vital Signs
Temp Pulse Resp BP Pulse Ox
98.4 F 82 19 179/90 98
05/13/25 07:48 05/13/25 07:45 05/13/25 07:45 05/13/25 07:31 05/13/25 07:45
I&O
05/12/25 05/13/25 05/14/25
06:59 06:59 06:59
Intake Total 840 / 1015 175 / 175
Output Total 1200 / 1200
Balance -360 / -185 175 / 175
Review of Systems
-
History Source: Patient
All other systems: Reviewed and negative
Abdomen/GI: Reports Abdominal Pain
Physical Exam
-
General: Comfortable
HEENT: Normocephalic
Respiratory: Clear to Auscultation
Cardiac: Regular Rhythm
GI: Soft and Tender
Rectal: Brown
Genito-urinary: No Costovertebral Tender
Neuro: Awake, Alert, Oriented and AO x 3
Psych: Calm
[2025-05-13 08:37] LABS: HDL Cholesterol 52 mg/dl; LDH 340 U/L (120-246); LDL Cholesterol, Calculated 75 mg/dl; Very Low Density Lipoprotein 14 mg/dl (0-30)
--- NOTE | 2025-05-13 09:22 | W.PN.UPDATE ---
Addendum entered and electronically signed by Marcos Garibay MD 05/13/25 09:26:
discussed with VascSx - cont with plan for embolization and no need for AC
Original Note:
Update Note
Progress Note Update
no splenic perfusion as per radiologist. Concern for splenic infarction. VascSx, GI and Director [employer] informed
[2025-05-13 09:32] LABS: Reticulocyte Count 1.8 % (0.4-2.8)
--- NOTE | 2025-05-13 09:51 | CON.GI ---
Consultation
-
Date/Time Consultation Requested: 05/13/25
Date/Time Consultation Performed: 05/13/25
Requesting Provider: Dr. Garibay
Performing Provider: Dr. Jones
Reason for Consultation: Recurrent pancreatitis c/b pseudocyst and splenic artery pseudoaneurysm
Medical History
Chief Complaint / HPI
Chief Complaint: Pancreatitis, splenic artery pseudoaneurysm
History of Present Illness:
Ge Christianson is a 65 y.o. male with history of alcohol abuse, necrotizing pancreatitis, AAA s/p endovascular repair, HTN, HLD, former tobacco abuse admitted iwth abdominal pain with radiation to the back, reports pain similar to prior episodes
of pancreatitis. 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 Vascular surgery is following and recommending embolization during current admission, possibly tomorrow. Ge
is well-known to Dr. Xie, initially presented with necrotizing pancreatitis on 02/2024 etoh, repeat MRI in follow-up showed large acute necrotic collection that had decreased in size, so endoscopic necrosectomy/drainage was deferred. Repeat MRI
on 11/2024 showed slight reduction in size from necrotic collection measuring 6.4 cm in the pancreatic tail. At his follow-up appointment in on 03/16, he was completely asymptomatic and without evidence of EPI, repeat imaging was deferred at that
time. Prior imaging did show chronic splenic vein thrombosis with collateral varices and splenomegaly in the LUQ.
Labs on admission notable for rising leukocytosis, WBC 11.6 -->17.4, Lipase 1963, Mild elevation in tbili to 1.9, Drbili 0.5, AST 24, ALT 18, alk phos 97.
CT A/P w/ IV Contrast 05/13/25: Mild pancreatic/peripancreatic inflammatory changes involving the body of the pancreas. Fluid collection along the tail of the pancreas compatible with pseudocyst is again seen, stable in size. Associated with the
pseudocyst there is a new approximate 2.5 cm homogeneously enhancing nodular area suggesting splenic artery pseudoaneurysm. Wall of pseudocyst may be mildly thickening although may be secondary to inflammatory changes of hte pancreas. Abdominal
aortic endostent seen, stable excluded aneurysm sac at approximately 5.6 cm. Spleen is overall hypodense, suggesting decreased perfusion.
MRI abd 11/2024 - walled off necrosis in posterior pancreatic tail, measuring 6.4 cm which is slightly decreased from previous 6.9 cm on 06/2024
MRI abd 06/2024 - no pancreatic ductal dilation, no evidence of pancreatic or peripancreatic edema. Walled off necrosis measuring 4 x 7.1 x 5.5 cm in the body and tail of pancreas which is decreased since 02/2024.
MRI abd 02/2024 - acute necrotizing pancreatitis in the body and tail. The pancreatic necrosis involves approximately 50% of pancreatic parenchyma. 10 x 9 x 9 cm acute necrotic collection posterior to the pancreatic body and tail.
Past Medical History
Past Medical History: Other
Past Surgical History: Other
Social History
Tobacco: Former Smoker
Alcohol: Daily
Family History
Family History: Reviewed & Not Pertinent
Allergies / Home Medications
Allergy/AdvReac Type Severity Reaction Status Date / Time
Penicillins Allergy Unknown Verified 05/23/24 06:26
�Medication �Instructions �Recorded
aspirin 81 mg tablet,delayed 81 mg PO DAILY #30 tabs 03/27/24
release
clopidogrel 75 mg tablet 75 mg PO DAILY #90 tabs 05/25/24
atorvastatin 80 mg DAILY 05/12/25
potassium chloride 10 mEq 80 meq PO DAILY 05/12/25
tablet,extended release
valsartan DAILY 05/12/25
amlodipine 10 mg tablet 10 mg PO DAILY 05/13/25
Review of Systems
-
History Source: Patient
All other systems: A 12 pt ROS was Negative except as stated above in HPI
Vital Signs
Temp Pulse Resp BP Pulse Ox
98.4 F 86 17 162/79 95
05/13/25 07:48 05/13/25 09:30 05/13/25 09:30 05/13/25 09:30 05/13/25 09:30
Physical Exam
Exam
General: Well Developed, Well Nourished and No Apparent Distress
GI: Soft, Non Tender (Very mild TTP in LUQ and epigastrium ), Non Distended and Normal Bowel Sounds
Results
WBC 17.4 10^3/uL (4.8-10.8) H 05/13/25 02:40
Hgb 13.8 g/dL (13.0-18.0) 05/13/25 02:40
Hct 39.3 % (39.0-52.0) 05/13/25 02:40
MCV 84.9 fL (80.0-94.0) 05/13/25 02:40
Plt Count 153 10^3/uL (130-400) 05/13/25 02:40
Absolute Neuts (auto) 15.8 10^3/uL (1.4-6.5) H 05/13/25 02:40
PT 14.1 Sec (11.4-14.6) 05/13/25 02:40
INR 1.06 05/13/25 02:40
APTT 28.8 Sec (23.4-35.0) 05/13/25 02:40
Sodium 135 mmol/L (135-145) 05/13/25 02:40
Potassium 3.7 mmol/L (3.5-5.1) 05/13/25 02:40
Chloride 106 mmol/L (98-107) 05/13/25 02:40
Carbon Dioxide 21 mmol/L (22-30) L 05/13/25 02:40
BUN 12 mg/dl (9-20) 05/13/25 02:40
Creatinine 0.9 mg/dL (0.7-1.3) 05/13/25 02:40
Calcium 9.4 mg/dl (8.4-10.2) 05/13/25 02:40
Total Bilirubin 1.9 mg/dl (0.2-1.3) H 05/13/25 02:40
AST 24 U/L (17-59) 05/13/25 02:40
ALT 18 U/L (0-50) 05/13/25 02:40
Alkaline Phosphatase 97 U/L (38-126) 05/13/25 02:40
Lipase 1963 U/L (23-300) H* 05/12/25 20:05
Diagnostic Image Results:
Prior GI Procedures:
EGD:
Colonoscopy:
Assessment / Plan
-
Ge Christianson is a 65 y.o. male with history of alcohol abuse, necrotizing pancreatitis, AAA s/p endovascular repair, HTN, HLD, former tobacco abuse admitted with recurrent pancreatitis and findings of splenic artery pseudoaneurysm, c/f rupture.
#Necrotizing pancreatitis
#Necrotic pancreatic fluid collection
#Acute pancreatitis c/b pseudocyst
#Splenic artery thrombosis/pseudoaneurysm
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 Imaging on admission now shows rapid size and growth of partially thrombosed large splenic artery aneurysm associated with the pancreatic
pseudocyst. CT scan demonstrates diffuse hypodensity of the spleen suggesting hypoperfusion/impeding infraction.
Vascular surgery following, planning endovascular repair, possibly tomorrow.
With regards to his pancreatitis, currently, appears to have mild pancreatitis with stable size of his known necrotic fluid collection, described by radiology as pseudocyst
Will defer management to vascular surgery
Recommend treating his pancreatitis, getting LR @ 150 cc/hr
Antiemetics
Analgesia
Keep NPO for now depending on vascular surgery plans
Will discuss imaging findings with Dr. Xie in the morning
Data Reviewed
-
Radiology: Report Reviewed by me
CT Scan: Report Reviewed by me
MRI: Report Reviewed by me
Old Records: Reviewed
-
-
Thank you for consultation and allowing me to participate in the patient's care. Please call the fuel verification technician GI physician during the after hours with any questions or concerns.
[2025-05-13 10:10] LABS: Venous Blood Gas B.E. -0.2 mmol/L (-4 to +4); Venous Blood Gas O2 Sat % 99.4 %
--- NOTE | 2025-05-13 10:31 | CM ---
CM reviewed chart. Pt w/pmhx of alcoholic pancreatitis, alcohol use disorder, aortic aneurysm status post EVAR, hypertension, hyperlipidemia, suspected sleep apnea, former smoker, presenting with sudden onset of upper abdominal pain slightly
radiating to the back, associate with nausea shortly prior to arrival.
Met with pt at bedside. Explained role and discussed anticipated dc plan/option.
Pt AAOX3. Pt is from home w/. Lives in a 2story home with steps to enter.
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 Owns RW and cane. No hx of home care or recent SNF placement.
Pt declining need for home care services at this time. Family to transport at dc.
CM/SW will continue to follow to ensure a safe and timely dc.
--- NOTE | 2025-05-13 10:34 | CON.INTV ---
Consultation
Consultation Request
Date/Time Consultation Requested: 05/13/2025
Date/Time Consultation Performed: 05/13/2025
Medical History
-
Chief Complaint: Abdominal pain and nausea
History of Present Illness:
Patient is a 65-year-old gentleman who presented to the hospital on 05/12 with abdominal pain and nausea. He was noted to have elevated lipase and diagnosed with acute pancreatitis confirmed by imaging showing mild pancreatitis changes. Patient
also carries a diagnosis of prior history of necrotizing pancreatitis with pseudocyst for which he has followed up with GI services outpatient. Prior history of alcohol use, denies any current regular use but does endorse a glass of wine on the day
prior to admission. Patient was resuscitated with IV fluids and has been on Ringer lactate at 150 mL/h. Additional imaging was concerning for an enlarging splenic artery aneurysm with compromised perfusion of spleen with suspected infarction. In
view of above findings, patient was transferred to ICU and wire weaver cloth consultation was requested. Patient also evaluated by vascular surgery and GI surgery service.
Past Medical History: Reports Other (alcoholic pancreatitis, alcohol use disorder, aortic aneurysm status post EVAR, hypertension, hyperlipidemia, suspected sleep apnea, former smoker)
Past Surgical History: Reports None
Social History
Tobacco: Former Smoker
Alcohol: Occasional
Drug: None
Family History
Family History: Not pertinent
Allergies / Home Medications
Allergies / Home Medications
Allergies
Allergy/AdvReac Type Severity Reaction Status Date / Time
Penicillins Allergy Unknown Verified 05/23/24 06:26
Home Medications
�Medication �Instructions �Recorded �Confirmed �Last Taken �Type
aspirin 81 mg tablet,delayed 81 mg PO DAILY #30 tabs 03/27/24 05/12/25 05/12/25 08:00 Rx
release
clopidogrel 75 mg tablet 75 mg PO DAILY #90 tabs 05/25/24 05/12/25 05/12/25 08:00 Rx
atorvastatin 80 mg DAILY 05/12/25 05/13/25 Unknown History
potassium chloride 10 mEq 80 meq PO DAILY 05/12/25 05/12/25 Unknown History
tablet,extended release
valsartan DAILY 05/12/25 Unknown History
amlodipine 10 mg tablet 10 mg PO DAILY 05/13/25 05/13/25 05/12/25 History
Review of Systems
-
Hematologic/Lymphatic: Other (All 14 systems reviewed and negative except as stated above in the history of present illness. Patient endorses improving abdominal pain and nausea.)
Vitals / Labs / Diagnostic Testing
Vital Signs
Temp Pulse Resp BP Pulse Ox
98.4 F 83 23 146/78 95
05/13/25 07:48 05/13/25 10:00 05/13/25 10:00 05/13/25 10:00 05/13/25 10:00
Lab Data
05/13/25 02:40
05/13/25 02:40
Laboratory Results
05/13/25
02:40
PT 14.1
INR 1.06
APTT 28.8
Diagnostic Testing:
Physical Exam
-
HEENT: Normocephalic
Cardiovascular: S1/S2
Respiratory: Clear and Non-Labored Respirations
GI: Soft and Other (Mild epigastric tenderness, without rebound or rigidity)
Neurology: Awake and Alert
General: Comfortable
Assessment
-
#1. Acute pancreatitis, recurrent, with pancreatic pseudocyst
- S/p IV fluid resuscitation, continue Ringer lactate as ordered
- Pain and nausea control. Reports overall feeling better
- Continue n.p.o. status, GI service on case
- Prior history of necrotizing pancreatitis with pseudocyst. LFTs unremarkable.
- VBG 7.48/30. Lactate re-assuring at 0.8
- Prior history of alcoholism, denies any current regular use of alcohol, reported consumption of glass of wine the day before presentation.
#2. 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
- Lactate normal at 0.8. Hemoglobin has been stable accounting for mild dilution due to IV fluids
- Discussed with vascular surgery service, hold off anticoagulation for now
- Plan for surgical intervention in coming days
#3. H/o AAA repair
- Stable endograft on imaging
Other medical diagnoses:
- History of smoking. Qualifies for low-dose CT scan for lung cancer screening. Follow-up as outpatient
- HLD
- History of alcohol use. Prior history of alcoholism, denies any alcohol use regularly lately but does endorse a glass of wine prior to admission
DVT prophylaxis. SCDs for now.
Critical Care time 65 mins -- The patient is admitted for acute critical illness for the treatment of vital organ failure and/or prevention of further life-threatening conditions. Total care includes time spent in review of history, physical exam,
medications, hemodynamic/ventilator parameters, laboratory data, imaging and discussion with house staff, pharmacy, respiratory therapy, account manager trainee, and nursing.
Data:
CT A/P 04/2024: Findings compatible with mild acute pancreatitis, as detailed above.
Findings highly suspicious for new splenic artery pseudoaneurysm associated with pancreatic tail pseudocyst, as noted above. Recommend emergent vascular surgery consultation.
Abdominal aortic endo-stent with stable excluded aneurysm sac, limited in evaluation on this non=angiographic study.
Diffuse hypodensity of the spleen suggesting hypoperfusion/impending infarction. Findings discussed by telephone with Dr. Garibay at 0920 hours on May 13, 2025.
Lexiscan 04/2024: Negative for ischemia
ECHO 04/2024: Normal left ventricular size and systolic function. Mild concentric left
ventricular hypertrophy. No regional wall motion abnormalities are seen. LV
ejection fraction is 55% by Forbes's method of discs. Normal diastolic
function.
Normal right ventricular size and function.
No significant valvular pathologies
--- NOTE | 2025-05-13 12:00 | PTCARENOTE ---
vitals stable. no changes in assessment noted. cardene at 5 mg/hr, SBP goal 140-160. bladder scanned for 700 ml- straight cathed for 600. pt tolerated well
[2025-05-13] MEDS: LR 1000 IV ×2 (15:30→21:38)
--- NOTE | 2025-05-13 16:57 | PTCARENOTE ---
vitals stable. no changes in assessment noted.
--- NOTE | 2025-05-13 23:54 | PTCARENOTE ---
Pt received start of shift, HR SR on telemetry. AAOx4. Pain in abdomen worse with movement and deep breathing. PRN pain medication - see MAR. Sampson and LR gtts infusing as ordered/documented. RA 96%. Voiding on own, but small amounts. Retaining
large amounts of urine - bladder scan for 597. Pt attempted to urinate more but stated he did not feel like he had any more to push out. Straight cath 450.
[2025-05-14] VITALS (54 sets, daily range): BP systolic 124–167; BP diastolic 73–102; BMI 26.2
[2025-05-14] MEDS: DILAUDID 0.5 MG IV ×4 (00:52→22:15)
[2025-05-14] MEDS: LR 1000 IV ×3 (04:09→20:20)
[2025-05-14 04:28] LABS: Hematocrit 36.3 % (39.0-52.0); Hemoglobin 12.4 g/dL (13.0-18.0); Mean Corp Hgb Conc. 34.2 g/dL (33.0-37.0); Mean Corpuscular Volume 84.8 fL (80.0-94.0); Nucleated Red Blood Cells % 0 % (-); Platelet Count 119 10^3/uL (130-400); Red Cell Dist. Width 14.0 % (11.5-14.5)
[2025-05-14 04:47] LABS: ALT (SGPT) 15 U/L (0-50); AST (SGOT) 29 U/L (17-59); Albumin 3.5 g/dl (3.5-5.0); Alkaline Phosphatase 76 U/L (38-126); Blood Urea Nitrogen 13 mg/dl (9-20); Calcium 8.6 mg/dl (8.4-10.2); Carbon Dioxide 23 mmol/L (22-30); Chloride 106 mmol/L (98-107); Estimated Creatinine Clearance 97 ml/min; Glucose 117 mg/dl (70-99); Potassium 3.9 mmol/L (3.5-5.1); Sodium 134 mmol/L (135-145); Total Protein 5.9 g/dl (6.3-8.2); eGFR > 60.00
[2025-05-14] MEDS: NSS 1000 IV (05:37)
--- NOTE | 2025-05-14 05:41 | PTCARENOTE ---
Cardene gtt titrated per order. PRN pain management - see MAR. Pain reported as fluctuating and worse with coughing, 'belching', or fast movement. Pt reports not feeling the urge or ability to urinate. Bladder scanned multiple times, 157mL max. HIGH SCHOOL COACH
notified, 1L NSS bolus.
[2025-05-14] MEDS: DIOVAN 80 MG PO (07:20)
--- NOTE | 2025-05-14 07:50 | PTCARENOTE ---
Addendum entered by Omayra Howell RN 05/14/25 08:24:
pain continues 01/02. TT to hospitalist and candle molder hand to update on pain management
Original Note:
report received, assessments per work list. NPO for possible procedure. patient irritable, unwilling to participate in plan of care. monitor nsr. cardene off at this time. abdomen distended and firm. patient reports intermittent stabbing sharp pain,
worse with movement and deep breathing. has just received prn dilaudid given by prior shift. call romero in reach
--- NOTE | 2025-05-14 08:10 | W.PN.INTV ---
Today's Communication / Plan
Recommendations
Keep NPO
Pain control
Going to OR today for possible splenic artery embolization
Vascular surgery recs appreciated
Cardene gtt; once he can take PO meds, then resume home antihypertensives and then wean off Cardene infusion
LR
Continue ICU level of care for this critically ill patient
Assessment
-
#1. Acute pancreatitis, recurrent, with pancreatic pseudocyst
- S/p IV fluid resuscitation, continue LR
- Pain and nausea control. Reports overall feeling better but he gets sudden paroxysms of LLQ pain
- Keep NPO, GI service on case
- Prior history of necrotizing pancreatitis with pseudocyst. LFTs unremarkable.
- VBG 7.48. Lactate re-assuring at 0.8
- Prior history of alcoholism, denies any current regular use of alcohol, reported consumption of glass of wine the day before presentation.
#2. 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
- Lactate normal at 0.8 on 05/13. Hemoglobin has been stable accounting for mild dilution due to IV fluids
- Discussed with vascular surgery service, hold off anticoagulation for now
- Plan for surgical intervention today for arteriogram and possible splenic artery embolization
#3. H/o AAA repair
- Stable endograft on imaging
#4. Hypertensive urgency
- Because patient is NPO, unable to administer his home antihypertensives including valsartan + Norvasc; continue with Cardene drip with goal SBP<140-160mmHg
Other medical diagnoses:
- History of smoking. Qualifies for low-dose CT scan for lung cancer screening. Follow-up as outpatient
- HLD
- History of alcohol use. Prior history of alcoholism, denies any alcohol use regularly lately but does endorse a glass of wine prior to admission
DVT prophylaxis. SCDs for now.
Patient going to the OR today - -> continue ICU level care for this critically ill patient
Critical care statement: A total of 37 minutes of critical care time was provided for this patient today. This includes management of unstable vital signs, evaluation of the patient at bedside, reviewing the patient�s pertinent medical records
including radiographs, microbiology, laboratory evaluations, and��discussion with primary team, consultants, pharmacy, nutrition, physical therapy, case management, charge nurse, critical care nursing, and respiratory therapy.
Data:
CT A/P 04/2024: Findings compatible with mild acute pancreatitis, as detailed above.
Findings highly suspicious for new splenic artery pseudoaneurysm associated with pancreatic tail pseudocyst, as noted above. Recommend emergent vascular surgery consultation.
Abdominal aortic endo-stent with stable excluded aneurysm sac, limited in evaluation on this non=angiographic study.
Diffuse hypodensity of the spleen suggesting hypoperfusion/impending infarction. Findings discussed by telephone with Dr. Garibay at 0920 hours on May 13, 2025.
Lexiscan 04/2024: Negative for ischemia
ECHO 04/2024: Normal left ventricular size and systolic function. Mild concentric left
ventricular hypertrophy. No regional wall motion abnormalities are seen. LV
ejection fraction is 55% by Forbes's method of discs. Normal diastolic
function.
Normal right ventricular size and function.
No significant valvular pathologies
Subjective Dataa
Subjective Data
Date of Service:
Date of Service: May 14, 2025
Chief Complaint: Prism Inspector Follow Up
Subjective:
Patient was seen and evaluated this morning. Off Cardene drip since this morning around 4:30 AM. Reports abdominal + left flank pain. Heart rate 82, BP 147/76 and he is saturating 93% on room air.
Review of Systems
General: Other (Negative unless mentioned above)
Objective Data
Data Reviewed
Vital Signs / I&O / Oxygen:
Vital Signs
Temp Pulse Resp BP Pulse Ox
99.1 F 82 17 152/85 95
05/14/25 07:33 05/14/25 09:00 05/14/25 09:00 05/14/25 09:00 05/14/25 09:00
Intake and Output
05/13/25 05/14/25 05/15/25
06:59 06:59 06:59
Intake Total 840 / 1015 4612.50 / 4762.50 550 / 550
Output Total 1200 / 1200 1550 / 1550
Balance -360 / -185 3062.50 / 3212.50 550 / 550
SaO2 95
Physical Exam
General: Respiratory Distress (negative), Pain (Left lower quadrant abdominal pain with deep breath, coughing or sneezing), Chills (negative) and Sweats (negative)
HEENT: Normocephalic and Anicteric
Cardiovascular: S1-S2 and Peripheral Edema (negative)
Respiratory: Wheeze (negative), Crackles (Occasionally heard on anterior lung pichardo (R >L)), Rhonchi (negative) and Non-Labored Respirations
GI: Soft, Non Distended, Tender (Left lower quadrant - periumbilical region is tender to palpation) and Other (normoactive BS)
Neurology: Awake, Alert, Oriented and Tremors (negative)
Skin: Warm, Dry, Cyanosis (negative) and Jaundice (negative)
Labs/Micro/Reports
Lab Data
05/14/25 04:04
05/14/25 04:04
[2025-05-14] MEDS: DILAUDID 1 MG IV ×3 (09:31→15:33)
--- NOTE | 2025-05-14 09:37 | PTCARENOTE ---
voided 50 ml pungent tanner urine assisted to stand at bedside. post void bladder scan per work list. orders received. medicated with Dilaudid for continued abdominal pain
--- NOTE | 2025-05-14 10:03 | W.PN.UPDATE ---
Update Note
Progress Note Update
Plan for OR today, keep npo. Pt agreeable to plan. Dr Fabian spoke with pt at bedside this am. RN aware of plan as well.
--- NOTE | 2025-05-14 10:11 | W.PN.HOSP.TC ---
Today's Communication/Plan
-
see bold
Assessment / Plan
Assessment / Plan
HPI: 65yo M with PMHX of ASCVD, HTN, HLD, AAA s/p EVAR, Hx of pancreatitis came with overnight severe abdominal pain, radiating to the back and constant. Patient had one glass of wine night before. CT showed acute pancreatitis. Also accidental
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
A/P:
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
#HTN urgency
Appreciate laminated plastics assembler and gluer and vascular surgery input, for endovascular repair today
Nicardipine drip for goal SBP < 160
Continue valsartan 80 mg daily
Avoid anticoagulation, antiplatelets
#Acute pancreatitis
CT without gall stones. Ca WNL
Previously followed by GI as outpatient due to concern for pancreatic cyst
Appreciate GI input, continue n.p.o., IV fluids
#Leukocytosis
Afebrile, no signs/symptoms on infection
#Bilirubinemia
Improving
#HLD
Continue statin
DVT ppx - SCDs
Full code
Total time spent to see the patient on the floor, examine the patient, review data and lab results, discuss treatment plan with patient, nursing staff around 41 minutes.
Physical Exam
General: No acute distress
HEENT: Normocephalic, Atraumatic, EOMI, MMM
Respiratory: Clear to Auscultation bilaterally
Cardiac: Normal S1/S2, Regular Rate and Rhythm
GI: Soft, tender, distended, Normal Bowel Sounds
Extremities: No Clubbing, Cyanosis, or Edema
Neuro: Nonfocal/Grossly Intact
Anticipated Discharge: > 48 hours
Subjective/Interval History
-
Date of Service: May 14, 2025
Patient complains of severe abdominal pain, improved with getting IV Dilaudid. Denies chest pain, denies shortness of breath. No fever, no vomiting.
Objective Data
-
Labs:
Laboratory Results
05/14/25
04:04
WBC 20.9 H
Hgb 12.4 L
Hct 36.3 L
Plt Count 119 L D
Sodium 134 L
Potassium 3.9
Chloride 106
Carbon Dioxide 23
BUN 13
Creatinine 0.8
Glucose 117 H
Calcium 8.6
Total Bilirubin 1.5 H
AST 29
ALT 15
Alkaline Phosphatase 76
Vital Signs:
Vital Signs
Temp Pulse Resp BP Pulse Ox
99.1 F 82 17 152/85 95
05/14/25 07:33 05/14/25 09:00 05/14/25 09:00 05/14/25 09:00 05/14/25 09:00
I&O
05/13/25 05/14/25 05/15/25
06:59 06:59 06:59
Intake Total 840 / 1015 4612.50 / 4762.50 550 / 550
Output Total 1200 / 1200 1550 / 1550 50 / 50
Balance -360 / -185 3062.50 / 3212.50 500 / 500
[2025-05-14] MEDS: CARDENE 200 IV (11:19)
[2025-05-14 11:24] LABS: Lipase 132 U/L (23-300); Magnesium 1.9 mg/dl (1.6-2.3)
--- NOTE | 2025-05-14 11:32 | PTCARENOTE ---
patient reassessed. cardene resumed per orders. voided small amount urine standing at bedside. post void residual 326. patient states pain better with increased dosing of dilaudid
--- NOTE | 2025-05-14 12:51 | W.PN.UPDATE ---
Update Note
Progress Note Update
Patient seen and examined
Chart reviewed
Dr. Monge's note reviewed
I personally reviewed the CT angiogram
He has a large chronic pancreatic pseudocyst and has not developed a splenic artery pseudoaneurysm.
He is having ongoing abdominal pain but is nontoxic-appearing and is in no acute distress
Hemodynamically stable
My plan is to proceed with arteriogram and possible splenic artery embolization today. The technical aspects of this procedure were discussed with him in detail. The benefits and rationale for this approach were discussed with him in detail.
Operative risks were discussed with him in detail including but not limited to bleeding, arterial access site injury, open conversion, splenic infarct, loss of spleen function, infection and the need for additional procedures.
He expressed a clear understanding of our conversation and agrees to proceed with surgery as detailed above.
Weston Fabian III, MD
Vascular Surgery
[facility]
--- NOTE | 2025-05-14 14:14 | W.PN.GI.CBS2 ---
Today's Communication / Plan
-
c/w LR. NPO for OR today with vascular surgery
Assessment / Plan
-
Ge Christianson is a 65 y.o. male with history of alcohol abuse, necrotizing pancreatitis, AAA s/p endovascular repair, HTN, HLD, former tobacco abuse admitted with recurrent pancreatitis and findings of splenic artery pseudoaneurysm, c/f rupture.
#Necrotizing pancreatitis
#Necrotic pancreatic fluid collection
#Acute pancreatitis c/b pseudocyst
#Splenic artery thrombosis/pseudoaneurysm
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 Imaging on admission now shows rapid size and growth of partially thrombosed large splenic artery aneurysm associated with the pancreatic
pseudocyst. CT scan demonstrates diffuse hypodensity of the spleen suggesting hypoperfusion/impeding infraction.
Vascular surgery following, planning endovascular repair today
With regards to his pancreatitis, currently, appears to have mild pancreatitis with stable size of his known necrotic fluid collection, described by radiology as pseudocyst
Will defer management to vascular surgery
Recommend treating his pancreatitis, getting LR @ 150 cc/hr
Antiemetics
Analgesia
Keep NPO for now depending on vascular surgery plans
Dr. Xie will plan for outpatient f/u unless he deteriorates and concerns for infected necrosis requiring more urgent intervention
Subjective
Subjective
Date of Service: May 14, 2025
Patient seen in follow-up early this morning. Reports ongoing LUQ/epigastric pain. NPO for OR today with vascular surgery.
Objective
Data Reviewed
Laboratory Data:
Laboratory Results
05/14/25 04:04
05/14/25 04:04
Laboratory Results
PT 14.1 Sec (11.4-14.6) 05/13/25 02:40
INR 1.06 05/13/25 02:40
APTT 28.8 Sec (23.4-35.0) 05/13/25 02:40
Phosphorus 3.4 mg/dl (2.5-4.5) 05/14/25 04:04
Magnesium 1.9 mg/dl (1.6-2.3) 05/14/25 04:04
Total Bilirubin 1.5 mg/dl (0.2-1.3) H 05/14/25 04:04
AST 29 U/L (17-59) 05/14/25 04:04
ALT 15 U/L (0-50) 05/14/25 04:04
Alkaline Phosphatase 76 U/L (38-126) 05/14/25 04:04
Lipase 132 U/L (23-300) 05/14/25 04:04
Vital Signs and I&O:
Vital Signs
Temp Pulse Resp BP Pulse Ox
98.5 F 81 21 148/81 92
05/14/25 11:48 05/14/25 13:30 05/14/25 13:30 05/14/25 13:30 05/14/25 13:30
I&O
05/13/25 05/14/25 05/15/25
06:59 06:59 06:59
Intake Total 840 / 1015 4612.50 / 4762.50 1182.5 / 1182.5
Output Total 1200 / 1200 1550 / 1550 150 / 150
Balance -360 / -185 3062.50 / 3212.50 1032.5 / 1032.5
Physical Exam
Physical Exam
HEENT: Anicteric and Moist mucous membranes
GI: Soft, Non Distended, Tender (TTP in epigastrium and LUQ; voluntary guarding) and Normal Bowel Sounds
--- NOTE | 2025-05-14 14:57 | PTCARENOTE ---
Addendum entered by Omayra Howell RN 05/14/25 17:00:
cardene weaned to off. report to vascular team, transport to vascular lab by vascular staff
Original Note:
bladder scan pvr per work list. d/w ui engineer. to place order for jimenez catheter. reviewed with patient. he is refusing a jimenez placement. 'they can do it in the OR'
--- NOTE | 2025-05-14 15:30 | CM ---
Pancreatic pseudocyst, for OR today, arteriogram and possible splenic artery embolization. Discharge POC: Patient declined HH services. Will re-evaluate need for RN after surgery. f
--- NOTE | 2025-05-14 18:18 | PTCARENOTE ---
VAT team contacted to obtain additional IV access. small amount bloody secretions suctioned orally. right upward gaze noted. daughter at bedside. support given. patient limited DNR. FIO@ per RT, decreased to 70%
--- NOTE | 2025-05-14 20:00 | PTCARENOTE ---
Received patient from PACU at approximately 1915. Patient AAOx3, drowsy. SR on monitor. L brachial arterial site C/D/I. + L radial pulse, cap refill <2, hand warm and fingers cool. Patient 98% on 6L. LR infusing as ordered.
--- NOTE | 2025-05-14 20:02 | OR.RPT ---
Operative Report
Operative Report
Date of Operation: 05/14/2025
Pre Op Diagnosis:
1. Splenic artery pseudoaneurysm
2. Chronic pancreatic pseudocyst
3. History of pancreatitis
4. History of abdominal aortic aneurysm status post endovascular aortic aneurysm repair
Post Op Diagnosis:
1. Splenic artery pseudoaneurysm
2. Chronic pancreatic pseudocyst
3. History of pancreatitis
4. History of abdominal aortic aneurysm status post endovascular aortic aneurysm repair
Procedure:
1. Coil embolization of splenic artery (6 mm, 8 mm, 10 mm Cook embolization coils)
2. Selective catheterization of celiac artery and splenic artery
3. Splenic arteriogram
4. Diagnostic aortogram
5. Ultrasound-guided percutaneous access to the left brachial artery
Surgeon: Weston Fabian III, MD
Engineering Lecturer: Trenotn Brar MD PGY2
Anesthesia: General
Complications: None
Estimated Blood Loss: Less than 10 cc
History and Indications for Procedure: 65-year-old male with chronic pancreatic pseudocyst who developed abdominal pain and cross-sectional imaging revealed contrast extravasation into the pseudocyst adjacent to the splenic artery raising strong
suspicion for splenic artery pseudoaneurysm. He was taken to the operating room for planned embolization of the splenic artery.
Procedure in Detail: Ge Christianson Jr was correctly identified and placed supine on the operating table. His left arm was abducted 90 degrees on an armboard. After adequate induction of anesthesia his left upper extremity was prepped and
draped in usual sterile fashion. A time out procedure was performed with the nursing and anesthesia staff confirming the patient's identity as well as the nature and laterality of the procedure.
Using ultrasound guidance I identified the brachial artery just proximal to the elbow in the left upper extremity. Under ultrasound guidance using a micropuncture needle we accessed the left brachial artery and then a 5 Mohawk sheath was placed
over a Klone Labson wire. Using a Glidewire and Steve catheter we navigated through the subclavian artery and into the distal aortic arch. We then continued to advance the catheter and wire into the descending thoracic aorta and proximal abdominal
aorta. A pigtail catheter was then placed. In a steep PERSON projection we performed an aortogram which clearly visualized the origin of the celiac artery. The aortogram revealed that the celiac artery was patent as were the hepatic and splenic
arteries. The superior mesenteric artery was patent. The left renal artery stent was patent. The aortic stent graft was visualized and was patent.
Systemic heparin was administered. A 5 Fr 90 cm sheath was advanced to the origin of the celiac artery over a Storq wire. Under roadmap guidance using the Steve catheter and a Glidewire we selected the celiac artery and then successfully navigated
the wire into the distal splenic artery. The 5 Mohawk sheath was advanced carefully to engage the proximal celiac artery. A Quickcross catheter was then advanced over the Glidewire to the mid splenic artery. Arteriograms of the splenic artery
were performed confirming that we were in the splenic artery. I could not visualize any clear contrast extravasation from the splenic artery on the selected arteriograms. I re-reviewed the CT scan images intraop and there was clearly contrast
extravasation within the pseudoaneurysm cavity immediately adjacent to the splenic artery. Under roadmap guidance using a stiff Glidewire and Quickcross catheter I was able to navigate through the more distal tortuosity of the splenic artery.
Using the arteriogram and the available cross-sectional imaging we then proceeded with embolization of the splenic artery. A combination of 6 mm, 8 mm and 10 mm Cook embolization coils were then packed into the splenic artery across the area in
question. Each of the coils were individually advanced through the Quickcross catheter without difficulty. A total of 8 coils were used. Subsequent arteriogram demonstrated a good result with very diminished flow through the splenic artery
compared to pre-treatment, especially at the area in question for the suspected pseudoaneurysm.
The catheter was then pulled from the 5 Fr sheath. A completion arteriogram through the 5 Fr sheath demonstrated a patent celiac artery and patent hepatic artery flow. Significantly diminished flow to the splenic artery was demonstrated
post-embolization.
Satisfied with this result we then concluded the procedure. Protamine was administered. The sheath was pulled and direct manual pressure was held over the brachial artery access site until hemostasis was achieved. A sterile dressing was applied.
The patient tolerated the procedure well was taken to the recovery room in good condition.
Attestation: I was present and responsible for the entire procedure
Signed:
Weston Fabian III, MD
Vascular Surgery
[facility]
[2025-05-14] MEDS: APRESOLINE 5 MG IV (23:07)
[2025-05-15] VITALS (41 sets, daily range): BP systolic 130–167; BP diastolic 73–90; BMI 26.3
--- NOTE | 2025-05-15 00:15 | PTCARENOTE ---
Systems reviewed. Patient on 2L NC satting 93-96%. Patient restarted on Cardene for SBP>160 - see worklist for documentation.
[2025-05-15] MEDS: DILAUDID 1 MG IV ×5 (01:23→14:37)
[2025-05-15] MEDS: LR 1000 IV ×3 (03:44→23:05)
[2025-05-15 04:34] LABS: Hematocrit 32.2 % (39.0-52.0); Hemoglobin 11.0 g/dL (13.0-18.0); Mean Corp Hgb Conc. 34.2 g/dL (33.0-37.0); Mean Corpuscular Volume 86.3 fL (80.0-94.0); Platelet Count 107 10^3/uL (130-400); Red Cell Dist. Width 14.1 % (11.5-14.5)
[2025-05-15 04:42] LABS: ALT (SGPT) 14 U/L (0-50); AST (SGOT) 21 U/L (17-59); Albumin 2.9 g/dl (3.5-5.0); Alkaline Phosphatase 74 U/L (38-126); Blood Urea Nitrogen 14 mg/dl (9-20); Calcium 8.1 mg/dl (8.4-10.2); Carbon Dioxide 24 mmol/L (22-30); Chloride 106 mmol/L (98-107); Estimated Creatinine Clearance 97 ml/min; Glucose 111 mg/dl (70-99); Potassium 4.0 mmol/L (3.5-5.1); Sodium 130 mmol/L (135-145); Total Protein 5.4 g/dl (6.3-8.2); eGFR > 60.00
[2025-05-15 04:51] LABS: Magnesium 1.8 mg/dl (1.6-2.3)
[2025-05-15] MEDS: APRESOLINE 5 MG IV (05:14)
--- NOTE | 2025-05-15 05:53 | PTCARENOTE ---
Systems reviewed. Assessment unchanged. Sampson off - see worklist.
[2025-05-15] MEDS: DIOVAN 80 MG PO (08:32)
--- NOTE | 2025-05-15 08:39 | W.PN.VS ---
Addendum entered and electronically signed by Weston Fabian III, MD 05/15/25 13:09:
This patient was seen and examined in collaboration with FILI Whitehead. I agree with the history and physical exam as well as the assessment and plan. I have the following additions:
Patient still with some left upper quadrant pain and flank pain this morning, somewhat improved
Sitting up in bed, no acute distress
Left brachial artery access site is soft
Easily palpable left radial pulse
Overall doing well following splenic artery embolization 05/14/2025
GI followup
Recommend repeat CT angiogram of the abdomen and pelvis prior to discharge to confirm splenic artery thrombosis and no further bleeding into pseudocyst cavity
Can follow-up with me in the office for ongoing surveillance of aortic stent graft
ID to see please for post-splenectomy vaccines
Signed:
Weston Fabian III, MD
Vascular Surgery
[facility]
Original Note:
Today's Communication / Plan
-
Seen and assessed with Dr Fabian
Assessment/Plan
-
POD 1
1. Coil embolization of splenic artery (6 mm, 8 mm, 10 mm Cook embolization coils)
2. Selective catheterization of celiac artery and splenic artery
3. Splenic arteriogram
4. Diagnostic aortogram
5. Ultrasound-guided percutaneous access to the left brachial artery
Plan:
OOB/ambulate
Increase diet as able
Planning for repeat CTA A/P later this week to reassess
ID for vaccines
Subjective Data
-
Date of Service: May 15, 2025
Pt seen at bedside this am with Dr Fabian. Pt offers no complaints at this time. No events overnight. Left arm access site c/d/i.
Objective Data
-
Vital Signs
Temp Pulse Resp BP Pulse Ox
98.7 F 81 18 151/90 96
05/15/25 07:24 05/15/25 08:32 05/15/25 08:32 05/15/25 08:32 05/15/25 08:37
Intake and Output
05/14/25 05/15/25 05/16/25
06:59 06:59 06:59
Intake Total 4612.50 / 4762.50 3697.5 / 3797.5 200 / 200
Output Total 1550 / 1550 1885 / 1885
Balance 3062.50 / 3212.50 1812.5 / 1912.5 200 / 200
Intake:
Oral fluids 340 / 340
IV fluids (Total) 4112.50 / 4262.50 3357.5 / 3457.5 200 / 200
Cardene 587.50 / 587.50 107.5 / 107.5
Lr 1,000 ml @ 150 mls/hr IV . 3525 / 3675 3250 / 3350 200 / 200
[id number] [facility] Rx#:[id number]
IV piggybacks 500 / 500
Output:
Urine, Fabian 1535 / 1535
Urine, Voided 500 / 500 350 / 350
Straight cath output 1050 / 1050
Lab Results
05/15/25 03:53
05/15/25 03:53
Calcium 8.1 mg/dl (8.4-10.2) L 05/15/25 03:53
Phosphorus 3.3 mg/dl (2.5-4.5) 05/15/25 03:53
Magnesium 1.8 mg/dl (1.6-2.3) 05/15/25 03:53
Total Bilirubin 1.2 mg/dl (0.2-1.3) 05/15/25 03:53
Direct Bilirubin 0.4 mg/dl (0.0-0.4) 05/15/25 03:53
AST 21 U/L (17-59) 05/15/25 03:53
ALT 14 U/L (0-50) 05/15/25 03:53
Alkaline Phosphatase 74 U/L (38-126) 05/15/25 03:53
Total Protein 5.4 g/dl (6.3-8.2) L 05/15/25 03:53
Albumin 2.9 g/dl (3.5-5.0) L 05/15/25 03:53
Physical Exam
-
AAOx3
No tachypnea on RA
No tachycardia
Abd soft
Left arm site c/d/i, soft, flat. Hand warm and pink
--- NOTE | 2025-05-15 08:45 | W.PN.INTV ---
Today's Communication / Plan
Recommendations
Advance diet as tolerated per Vascular Surgery
Continue pain management
Assessment
-
Assessment
This is a 65 y/o male with pmhx of alcoholic pancreatitis, alcohol use disorder, aortic aneurysm status post EVAR, essential hypertension, hyperlipidemia, former smoker, who presented to the ED on 05/12 after sudden onset of abodmainl pain radiating
to the back with nausea, was found to have splenic artery pseudoaneurysm with concern for splenic infarct, s/p embolization and catheterization on 05/14.
Plan:
Acute pancreatitis, recurrent, with pancreatic pseudocyst
History of Alcoholism
History of Smoking
Per CT Abdomen 05/12: Findings highly suspicious for new splenic artery pseudoaneurysm associated with pancreatic tail pseudocyst,
Patient with prior history of alcoholism, denies any current regular use of alcohol, does have a prior history of pancreatitis episodes.
S/p IV fluid resuscitation, currently on LR while being kept NPO
Continue pain and nausea control. Patient reports increasing pain overnight, but overall improved since his procedure yesterday. States pain is worse than prior episodes of pancreatitis. Currently on 0.5mg Dilaudid PRN Q3H for moderate pain, 1mg
Dilaudid PRN for Q3H for severe pain
Liver Function Tests within normal limits this hospitalization
Lactic Acid 05/13: 0.8
Advance diet as per Vascular Surgery Note this AM. Patient advanced to clears this AM.
Patient does qualify for low-dose CT scan for lung cancer screening based on smoking history, would recommend outpatient follow up
At this point, would consider downgrading
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
Per CT Abdomen 05/12: Findings highly suspicious for new splenic artery pseudoaneurysm associated with pancreatic tail pseudocyst
S/p coil embolization of the splenic artery, selective catheterization of celiac artery/splenic artery, splenic arteriogram, diagnostic aortogram via the left brachial artery on 05/14
Vascular Surgery is following, will appreciate their insight
H/o AAA repair
Per CT Abdomen 05/12: Stable endograft
Hypertensive urgency
Blood pressures remain elevated this AM
D/c Cardene drip now that patient is resuming diet
Continue home Valsartan
Restart amlodipine now that patient is no longer NPO
Hyperlipidemia
Patient on Atorvastatin 80mg at home, being held while NPO, restart today
Subjective Dataa
Subjective Data
Date of Service:
Date of Service: May 15, 2025
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
Subjective:
Patient was resting in his room when I arrived. He states that following his procedure yesterday he was initially without pain, but overnight the aching pain in his left side has returned. It is worse with movement, coughing, sneezing. Overall it is
better than it was pre-procedure. He is free of nausea, vomiting, diarrhea or constipation, though notes he has not had a bowel movement in several days due to being NPO. He is interested in eating food today.
Review of Systems
General: Satisfactory Appetite
GI: Abdominal Pain
Objective Data
Data Reviewed
Vital Signs / I&O / Oxygen:
Vital Signs
Temp Pulse Resp BP Pulse Ox
98.7 F 81 18 151/90 96
05/15/25 07:24 05/15/25 08:32 05/15/25 08:32 05/15/25 08:32 05/15/25 08:37
Intake and Output
05/14/25 05/15/25 05/16/25
06:59 06:59 06:59
Intake Total 4612.50 / 4762.50 3697.5 / 3797.5 200 / 200
Output Total 1550 / 1550 1885 / 1885
Balance 3062.50 / 3212.50 1812.5 / 1912.5 200 / 200
SaO2 96
Nasal Cannula flow liters per 2
minute
Physical Exam
General: Pain (Left upper quadrant abdominal pain worsened with deep breath, coughing, sneezing, torso flexion or rotation in either direction)
HEENT: Normocephalic and Anicteric
Cardiovascular: S1-S2 and Other (No Peripheral Edema)
Respiratory: Clear (Only able to assess anterior lung sounds due to movement limited by pain), Non-Labored Respirations and Other (2L Supplemental oxygen, patient saturated at 94% while talking after removing nasal cannula for around 5 minutes.)
GI: Soft, Non Distended and Normal Bowel Sounds
Neurology: Awake, Alert and Oriented
Skin: Warm and Dry
Labs/Micro/Reports
Lab Data
05/15/25 03:53
05/15/25 03:53
--- NOTE | 2025-05-15 09:36 | W.PN.GI.CBS2 ---
Today's Communication / Plan
-
Advance diet per vascular surgery, pain management, monitor for signs of infection
Assessment / Plan
-
Ge Christianson is a 65 y.o. male with history of alcohol abuse, necrotizing pancreatitis, AAA s/p endovascular repair, HTN, HLD, former tobacco abuse admitted with recurrent pancreatitis and findings of splenic artery pseudoaneurysm, c/f rupture.
#Necrotizing pancreatitis
#Necrotic pancreatic fluid collection
#Acute pancreatitis c/b pseudocyst
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
#thrombocytopenia-- chronic, stable over last year
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 Imaging on admission showed rapid size and growth of partially thrombosed large splenic artery aneurysm
s/p coil embolization of the splenic artery, selective catheterization of the celiac and splenic arteries, splenic arteriogram, diagnostic aortogram 05/[address] Fabian
Lipase 1963 --> 132
Advance diet per vascular surgery, from a pancreatitis perspective, I feel it was mild and mostly resolved
Antiemetics, analgesia, prn
Unless he shows signs of clinical decompensation, no plans for endoscopic intervention of pancreatic collection during current admission
Subjective
Subjective
Date of Service: May 15, 2025
Patient seen in follow-up, he is s/p coil embolization of the splenic artery with Dr. Fabian 05/14. Pain overall improved following procedure, still having some LUQ abdominal pain. Slight worsening of leukocytosis, 20 --> 23K. Lipase has normalized.
Objective
Data Reviewed
Laboratory Data:
Laboratory Results
05/15/25 03:53
05/15/25 03:53
Laboratory Results
PT 14.1 Sec (11.4-14.6) 05/13/25 02:40
INR 1.06 05/13/25 02:40
APTT 28.8 Sec (23.4-35.0) 05/13/25 02:40
Phosphorus 3.3 mg/dl (2.5-4.5) 05/15/25 03:53
Magnesium 1.8 mg/dl (1.6-2.3) 05/15/25 03:53
Total Bilirubin 1.2 mg/dl (0.2-1.3) 05/15/25 03:53
AST 21 U/L (17-59) 05/15/25 03:53
ALT 14 U/L (0-50) 05/15/25 03:53
Alkaline Phosphatase 74 U/L (38-126) 05/15/25 03:53
Lipase 132 U/L (23-300) 05/14/25 04:04
Vital Signs and I&O:
Vital Signs
Temp Pulse Resp BP Pulse Ox
98.7 F 81 18 151/90 96
05/15/25 07:24 05/15/25 08:32 05/15/25 08:32 05/15/25 08:32 05/15/25 08:37
I&O
05/14/25 05/15/25 05/16/25
06:59 06:59 06:59
Intake Total 4612.50 / 4762.50 3697.5 / 3797.5 200 / 200
Output Total 1550 / 1550 1885 / 1885
Balance 3062.50 / 3212.50 1812.5 / 1912.5 200 / 200
Physical Exam
Physical Exam
HEENT: Anicteric and Moist mucous membranes
GI: Soft, Non Distended, Tender (mild epigastric and LUQ pain with palpation, improved exam ) and Normal Bowel Sounds
--- NOTE | 2025-05-15 09:43 | W.PN.HOSP.TC ---
Today's Communication/Plan
-
Transfer to telemetry
Assessment / Plan
Assessment / Plan
HPI: 65yo M with PMHX of ASCVD, HTN, HLD, AAA s/p EVAR, Hx of pancreatitis came with overnight severe abdominal pain, radiating to the back and constant. Patient had one glass of wine night before. CT showed acute pancreatitis. Also accidental
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
A/P:
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
#HTN urgency
Appreciate soaker and vascular surgery input, status post endovascular repair 05/14
Off nicardipine drip, resumed on amlodipine 10 mg daily, continue valsartan 80 mg daily
#Acute pancreatitis
CT without gall stones. Ca WNL
Previously followed by GI as outpatient due to concern for pancreatic cyst
Appreciate GI input, lipase now normal, trial of low-fat diet
#Hyponatremia
Fluid restrict
#Leukocytosis
Afebrile, no signs/symptoms on infection
#Bilirubinemia
Improving
#HLD
Continue statin
DVT ppx -subcu Lovenox
Full code
Total time spent to see the patient on the floor, examine the patient, review data and lab results, discuss treatment plan with patient, nursing staff around 51 minutes.
Physical Exam
General: No acute distress
HEENT: Normocephalic, Atraumatic, EOMI, MMM
Respiratory: Clear to Auscultation bilaterally
Cardiac: Normal S1/S2, Regular Rate and Rhythm
GI: Soft, tender on left side, distended, Normal Bowel Sounds
Extremities: No Clubbing, Cyanosis, or Edema
Neuro: Nonfocal/Grossly Intact
Anticipated Discharge: 24 - 48 hours
Subjective/Interval History
-
Date of Service: May 15, 2025
Patient complains of 6 out of 10 left-sided abdominal pain. Denies epigastric abdominal pain. He is tolerating clear liquids. Denies chest pain, denies shortness of breath. No fever, no vomiting.
Objective Data
-
Labs:
Laboratory Results
05/15/25
03:53
WBC 23.3 H
Hgb 11.0 L
Hct 32.2 L
Plt Count 107 L
Sodium 130 L
Potassium 4.0
Chloride 106
Carbon Dioxide 24
BUN 14
Creatinine 0.8
Glucose 111 H
Calcium 8.1 L
Total Bilirubin 1.2
AST 21
ALT 14
Alkaline Phosphatase 74
Vital Signs:
Vital Signs
Temp Pulse Resp BP Pulse Ox
98.7 F 81 18 151/90 96
05/15/25 07:24 05/15/25 08:32 05/15/25 08:32 05/15/25 08:32 05/15/25 08:37
I&O
05/14/25 05/15/25 05/16/25
06:59 06:59 06:59
Intake Total 4612.50 / 4762.50 3697.5 / 3797.5 200 / 200
Output Total 1550 / 1550 1885 / 1885
Balance 3062.50 / 3212.50 1812.5 / 1912.5 200 / 200
--- NOTE | 2025-05-15 10:42 | W.PN.ANS.POP ---
Anesthesia Post Operative
- Anesthesia Post Op Note
Vital Signs Stable-See Nursing Note: Yes
Airway Patent: Yes
Adequate Pain Control: Yes
Change in Mental Status: No
Current Postoperative Nausea & Vomiting: No
Anesthesia Complications: No
General Anesthetic Recall: No
Unplanned Admission: No
Post Op Hydration Adequate: Yes
--- NOTE | 2025-05-15 10:52 | PTCARENOTE ---
Assumed care of patient at 0700. Patient alert and oriented. Agitated/argumentative. MAEx4. LUE neurovascular check wnl. NSR, rate in the 70-80's. SBP in the 150's. Cardene of since around 0300. Pulse ox 96% on 2L nc. Lung sounds diminished
throughout. +BS. NPO. Pain managed with PRN Dilaudid. IVFs infusing. Fabian in place for acute retention. See worklist for full assessment and care.
[2025-05-15] MEDS: NORVASC 10 MG PO (12:33)
[2025-05-15] MEDS: SENOKOT-S 1 TABLET PO (12:33)
--- NOTE | 2025-05-15 13:14 | PTCARENOTE ---
Patient downgraded to tele level. VSS. Tolerating clears.
--- NOTE | 2025-05-15 15:36 | CM ---
Chronic pancreatic pseudocyst POD #1. Discharge POC: TBD. Prior to surgery patient declined HH RN. Need to re-evaluate at discharge.
--- NOTE | 2025-05-15 16:08 | TRANSFER ---
Patient transported to via wheelchair with belongings. Notified of diet advancement to low residue. Stood at side of bed and ambulated to wheelchair with no difficulty.
[2025-05-15] MEDS: LIPITOR 80 MG PO (17:00)
[2025-05-15] MEDS: ROXICODONE 5 MG PO ×2 (17:00→22:11)
[2025-05-15] MEDS: LOVENOX 40 MG SC (17:01)
[2025-05-15] MEDS: TYLENOL 650 MG PO (23:04)
[2025-05-16] VITALS (7 sets, daily range): BP systolic 134–153; BP diastolic 73–83; PULSE 71
--- NOTE | 2025-05-16 06:30 | DOWNTIME ---
There was a [employer] Client Property Consultant Downtime on 05/16/2025 from 0100 to 05/16/2025 at 0215. Downtime documentation of patient's care, including medication administrations, has been reconciled in the electronic record per guidelines. Refer to the
patient's paper chart under the miscellaneous tab to see printed paper medication records and downtime forms.
[2025-05-16] MEDS: SENOKOT-S 1 TABLET PO (08:10)
[2025-05-16] MEDS: DIOVAN 80 MG PO (08:10)
[2025-05-16] MEDS: NORVASC 10 MG PO (08:10)
[2025-05-16] MEDS: ROXICODONE 5 MG PO ×2 (08:11→18:07)
[2025-05-16 08:31] LABS: Hematocrit 31.9 % (39.0-52.0); Hemoglobin 10.5 g/dL (13.0-18.0); Mean Corp Hgb Conc. 32.9 g/dL (33.0-37.0); Mean Corpuscular Volume 89.6 fL (80.0-94.0); Platelet Count 162 10^3/uL (130-400); Red Cell Dist. Width 14.1 % (11.5-14.5)
--- NOTE | 2025-05-16 09:09 | W.PN.HOSP.TC ---
Today's Communication/Plan
-
Remove Fabian for void trial
Repeat CT abdomen and pelvis as per vascular surgery recommendations
Discharge tomorrow
Assessment / Plan
Assessment / Plan
HPI: 65yo M with PMHX of ASCVD, HTN, HLD, AAA s/p EVAR, Hx of pancreatitis came with overnight severe abdominal pain, radiating to the back and constant. Patient had one glass of wine night before. CT showed acute pancreatitis. Also accidental
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
A/P:
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
#HTN urgency
Appreciate machine grinder and vascular surgery input, status post coil embolization of splenic artery 05/14
Off nicardipine drip, resumed on amlodipine 10 mg daily, continue valsartan [address] abdomen and pelvis as per vascular surgery recommendations
#Acute urinary retention
Remove Fabian for void trial
Start Flomax
#Acute pancreatitis, unable to determine if this is related to having [address] without gall stones. Ca WNL
Previously followed by GI as outpatient due to concern for pancreatic cyst
Appreciate GI input, lipase now normal, GI recommends outpatient follow-up
#Hyponatremia
Improving with fluid restrict
#Leukocytosis
Afebrile, no signs/symptoms on infection
#Bilirubinemia
Improving
#HLD
Continue statin
DVT ppx -subcu Lovenox
Full code
Total time spent to see the patient on the floor, examine the patient, review data and lab results, discuss treatment plan with patient, nursing staff around 50 minutes.
Physical Exam
General: No acute distress
HEENT: Normocephalic, Atraumatic, EOMI, MMM
Respiratory: Clear to Auscultation bilaterally
Cardiac: Normal S1/S2, Regular Rate and Rhythm
GI: Soft, tender on left side, distended, Normal Bowel Sounds
Extremities: No Clubbing, Cyanosis, or Edema
Neuro: Nonfocal/Grossly Intact
Anticipated Discharge: Within 24 hours
Subjective/Interval History
-
Date of Service: May 15, 2025
Patient reports improvement in his abdominal pain. Denies chest pain, denies shortness of breath. No fever, no vomiting.
Objective Data
-
Labs:
Laboratory Results
05/15/25
03:53
WBC 23.3 H
Hgb 11.0 L
Hct 32.2 L
Plt Count 107 L
Sodium 130 L
Potassium 4.0
Chloride 106
Carbon Dioxide 24
BUN 14
Creatinine 0.8
Glucose 111 H
Calcium 8.1 L
Total Bilirubin 1.2
AST 21
ALT 14
Alkaline Phosphatase 74
Vital Signs:
Vital Signs
Temp Pulse Resp BP Pulse Ox
98.9 F 77 18 141/78 93
05/15/25 13:33 05/15/25 15:00 05/15/25 15:00 05/15/25 15:00 05/15/25 15:00
I&O
05/14/25 05/15/25 05/16/25
06:59 06:59 06:59
Intake Total 4612.50 / 4762.50 3697.5 / 3797.5 1140 / 1140
Output Total 1550 / 1550 1885 / 1885 965 / 965
Balance 3062.50 / 3212.50 1812.5 / 1912.5 175 / 175
[2025-05-16 09:22] LABS: Blood Urea Nitrogen 15 mg/dl (9-20); Calcium 7.8 mg/dl (8.4-10.2); Carbon Dioxide 25 mmol/L (22-30); Chloride 106 mmol/L (98-107); Estimated Creatinine Clearance 86 ml/min; Glucose 96 mg/dl (70-99); Potassium 3.7 mmol/L (3.5-5.1); Sodium 133 mmol/L (135-145); eGFR > 60.00
--- NOTE | 2025-05-16 09:26 | PTOTSP ---
Pt is able to get OOB and ambulate in hallway without need for any assistive devices. Ok for dc to home from PT standpoint. He hopes to get lines out and go home today. PT will sign off.
[2025-05-16] MEDS: LR 1000 IV (09:52)
[2025-05-16] MEDS: FLOMAX 0.8 MG PO (09:56)
--- NOTE | 2025-05-16 11:02 | PN.CDI ---
CDI
- -
CDI:
Physician Documentation Request
Admit Date: 05/12/25 22:02
Dear Doctor Do,
Patient is admitted with acute pancreatitis and splenic artery pseudoaneurysm.
Exceptional Children Teacher progress note states prior history of alcoholism/alcohol use. Denies regular use. Did report consumption of glass of wine the day before presentation.
GI reports history of alcohol abuse.
Please clarify if a relationship exist between these conditions:
Yes, acute pancreatitis is related to/associated with/due to alcohol use/abuse
No, acute pancreatitis is not related to/associated with/due to alcohol use/abuse but it is due to ___. (Please specify)
Unable to determine
Use of terms such as suspected, likely, concern for, or probable (associated with a specific diagnosis that is being evaluated, monitored, or treated as if it exists) are acceptable and can be coded in the inpatient setting, when documented at the
time of discharge.
Thank you,
Lucia Sosa RN, BSN
CDI Specialist
tiger text
Please use your independent medical judgment in providing your response.
--- NOTE | 2025-05-16 12:45 | W.PN.GI.CBS2 ---
Today's Communication / Plan
-
Patient improving. GI will sign off, outpatient f/u with Dr. Xie. Please call with ?
Assessment / Plan
-
Ge Christianson is a 65 y.o. male with history of alcohol abuse, necrotizing pancreatitis, AAA s/p endovascular repair, HTN, HLD, former tobacco abuse admitted with recurrent pancreatitis and findings of splenic artery pseudoaneurysm, c/f rupture.
#Necrotizing pancreatitis
#Necrotic pancreatic fluid collection
#Acute pancreatitis c/b pseudocyst
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
#thrombocytopenia-- chronic, stable over last year
WBC 17 -->21 --> 23 --> 16K
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 Imaging on admission showed rapid size and growth of partially thrombosed large splenic artery aneurysm
s/p coil embolization of the splenic artery, selective catheterization of the celiac and splenic arteries, splenic arteriogram, diagnostic aortogram 05/[address] Fabian
Lipase 1963 --> 132
Currently tolerating low fat diet
Antiemetics, analgesia, prn
Given no signs of infection and clinical improvement, no inpatient endoscopic intervention recommended.
Recommend outpatient f/u with in next 2-3 months. GI will sign off, please call with questions.
Subjective
Subjective
Date of Service: May 16, 2025
Patient seen in follow-up, reports significant improvement in last 24 hours. Leukocytosis improving
Objective
Data Reviewed
Laboratory Data:
Laboratory Results
05/16/25 07:03
05/16/25 07:03
Laboratory Results
PT 14.1 Sec (11.4-14.6) 05/13/25 02:40
INR 1.06 05/13/25 02:40
APTT 28.8 Sec (23.4-35.0) 05/13/25 02:40
Phosphorus 3.3 mg/dl (2.5-4.5) 05/15/25 03:53
Magnesium 1.8 mg/dl (1.6-2.3) 05/15/25 03:53
Total Bilirubin 1.2 mg/dl (0.2-1.3) 05/15/25 03:53
AST 21 U/L (17-59) 05/15/25 03:53
ALT 14 U/L (0-50) 05/15/25 03:53
Alkaline Phosphatase 74 U/L (38-126) 05/15/25 03:53
Lipase 132 U/L (23-300) 05/14/25 04:04
Vital Signs and I&O:
Vital Signs
Temp Pulse Resp BP Pulse Ox
98.4 F 71 18 147/77 96
05/16/25 11:25 05/16/25 11:25 05/16/25 11:25 05/16/25 11:25 05/16/25 11:25
I&O
05/15/25 05/16/25 05/17/25
06:59 06:59 06:59
Intake Total 3697.5 / 3797.5 1240 / 1240
Output Total 1885 / 1885 2540 / 2540 725 / 725
Balance 1812.5 / 1912.5 -1300 / -1300 -725 / -725
Physical Exam
Physical Exam
HEENT: Anicteric and Moist mucous membranes
GI: Soft, Non Distended, Non Tender (improved exam) and Normal Bowel Sounds
--- NOTE | 2025-05-16 14:51 | CM ---
CM following re: discharge planning.
Reviewed pt's chart, met with pt.
Pt stated he feels her is ready for discharge. IMM reviewed, placed on chart, pt has a copy.
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
D/C plan: home no needs. friend to transport at discharge.
[2025-05-16] MEDS: LIPITOR 80 MG PO (17:32)
[2025-05-16] MEDS: LOVENOX 40 MG SC (17:32)
[2025-05-16] MEDS: ROXICODONE 10 MG PO (21:10)
[2025-05-17] MEDS: ROXICODONE 10 MG PO ×3 (01:13→12:19)
[2025-05-17 02:57] VITALS: BP 128/78
[2025-05-17 07:10] VITALS: BP 141/76
[2025-05-17 07:50] LABS: Blood Urea Nitrogen 15 mg/dl (9-20); Calcium 7.7 mg/dl (8.4-10.2); Carbon Dioxide 25 mmol/L (22-30); Chloride 104 mmol/L (98-107); Estimated Creatinine Clearance 86 ml/min; Glucose 101 mg/dl (70-99); Potassium 3.6 mmol/L (3.5-5.1); Sodium 133 mmol/L (135-145); eGFR > 60.00
[2025-05-17] MEDS: NORVASC 10 MG PO (08:32)
[2025-05-17] MEDS: DIOVAN 80 MG PO (08:32)
[2025-05-17] MEDS: SENOKOT-S PO ×2 (08:32→08:34)
[2025-05-17 08:50] LABS: Hematocrit 30.1 % (39.0-52.0); Hemoglobin 10.2 g/dL (13.0-18.0); Mean Corp Hgb Conc. 33.9 g/dL (33.0-37.0); Mean Corpuscular Volume 86.7 fL (80.0-94.0); Platelet Count 213 10^3/uL (130-400); Red Cell Dist. Width 14.0 % (11.5-14.5)
--- NOTE | 2025-05-17 08:50 | W.PN.HOSP.TC ---
Today's Communication/Plan
-
Discharge home today
Assessment / Plan
Assessment / Plan
HPI: 65yo M with PMHX of ASCVD, HTN, HLD, AAA s/p EVAR, Hx of pancreatitis came with overnight severe abdominal pain, radiating to the back and constant. Patient had one glass of wine night before. CT showed acute pancreatitis. Also accidental
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
A/P:
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
#HTN urgency
Appreciate tip out worker and vascular surgery input, status post coil embolization of splenic artery 05/14
Off nicardipine drip, resumed on amlodipine 10 mg daily, continue valsartan [address] abdomen and pelvis as per vascular surgery recommendations, confirms no further bleeding into pseudocyst cavity
Discharge today, follow-up with vascular surgery in the office, and his PCP in 1 week
#Acute urinary retention
Status post Fabian removal, he has been able to void, continue Flomax upon discharge
#Acute pancreatitis, unable to determine if this is related to having [address] without gall stones. Ca WNL
Previously followed by GI as outpatient due to concern for pancreatic cyst
Appreciate GI input, lipase now normal, GI recommends outpatient follow-up
#Hyponatremia
Improving with fluid restriction
#Leukocytosis
Afebrile, no signs/symptoms on infection
#Bilirubinemia
Improving
#HLD
Continue statin
#Small bilateral pleural effusion
DVT ppx -subcu Lovenox
Full code
Physical Exam
General: No acute distress
HEENT: Normocephalic, Atraumatic, EOMI, MMM
Respiratory: Clear to Auscultation bilaterally
Cardiac: Normal S1/S2, Regular Rate and Rhythm
GI: Soft, tender on left side, distended, Normal Bowel Sounds
Extremities: No Clubbing, Cyanosis, or Edema
Neuro: Nonfocal/Grossly Intact
Anticipated Discharge: Today
Subjective/Interval History
-
Date of Service: May 17, 2025
Patient reports that he has left-sided abdominal pain, and is asking for his oxycodone. Denies chest pain, denies shortness of breath. He has been able to void. No fever, no vomiting.
Objective Data
-
Labs:
Laboratory Results
05/17/25
06:21
WBC 14.5 H
Hgb 10.2 L
Hct 30.1 L
Plt Count 213 D
Sodium 133 L
Potassium 3.6
Chloride 104
Carbon Dioxide 25
BUN 15
Creatinine 0.9
Glucose 101 H
Calcium 7.7 L
Vital Signs:
Vital Signs
Temp Pulse Resp BP Pulse Ox
99.0 F 71 18 141/76 93
05/17/25 07:10 05/17/25 08:32 05/17/25 07:10 05/17/25 08:32 05/17/25 07:10
I&O
05/16/25 05/17/25 05/18/25
06:59 06:59 06:59
Intake Total 1240 / 1240 890 / 890
Output Total 2540 / 2540 2875 / 2875
Balance -1300 / -1300 -1984 /
[2025-05-17] MEDS: ROXICODONE 5 MG PO ×2 (10:44→15:02)
--- NOTE | 2025-05-17 10:46 | CM ---
Addendum entered by Jie Salazar 05/17/25 14:51:
Discharge today; no needs
Original Note:
Met with patient at bedside; reported that friend or family member will provide transport home
IMM benefit explained; form signed @ 1040
Plan: possible discharge to home today; no needs
[2025-05-17 11:06] VITALS: BP 138/77
--- NOTE | 2025-05-17 14:55 | W.DCSUMMARY ---
Discharge Summary
Discharge Data
Date of Admission: 05/12/25
Date of Discharge: 05/17/25
-
Pending Results: No
Hospital Course
Discharge diagnosis:
Splenic artery aneurysm with intramural bleeding
Hypertensive urgency
Acute urinary retention
Acute pancreatitis
Hyponatremia
Leukocytosis
Hyperbilirubinemia
Hyperlipidemia
Small bilateral pleural effusion
Consults: Conference And Event Organiser, GI, vascular surgery
Procedures:
05/14/2025
1. Coil embolization of splenic artery (6 mm, 8 mm, 10 mm Cook embolization coils)
2. Selective catheterization of celiac artery and splenic artery
3. Splenic arteriogram
4. Diagnostic aortogram
5. Ultrasound-guided percutaneous access to the left brachial artery
CT abd/pelvis:
1. Grossly stable splenic artery pseudoaneurysm status post adjacent coiling.
2. Improved heterogeneous perfusion of the spleen, with underlying infarcts not excluded.
3. Small volume abdominopelvic ascites, new.
4. New small right and [id number] left pleural effusions with associated atelectasis and/or pneumonia.
Hospital course:
65-year-old male with a past medical history of alcohol abuse, necrotizing pancreatitis, AAA s/p endovascular repair, HTN, and hyperlipidemia, who presented with abdominal pain, and was found to have hypertensive urgency and acute pancreatitis. CT
of the abdomen and pelvis shows partially thrombosed large splenic artery aneurysm/pseudoaneurysm, with concern for impending rupture. Patient was seen in conjunction with the field enumerator, GI, and vascular surgery. He was treated with bowel rest,
IV fluids, pain medication, and a Cardene drip. He underwent coil embolization of the splenic artery on 05/14/2025. He did well postoperatively, and was transitioned to his home amlodipine 10 mg daily, and valsartan 80 mg daily.
Patient was transferred out of the ICU. His pancreatitis resolved. He tolerated a low-fat diet. He did have urinary retention, requiring a Fabian. His Fabian was removed, he was started on Flomax. He was able to void. Patient is medically stable
for discharge. He needs to follow-up with his PCP in the office in 1 week, as well as vascular surgery in 2 weeks.
Disposition: Home self-care
Discharge planning: Required 36 minutes
Discharge Plan
-
Patient Disposition: Home (Routine Discharge)
Discharge Diagnosis/Procedures: Splenic artery aneurysm with intramural bleeding, hypertensive urgency, acute pancreatitis
Condition: Good
Diet: Low Fat and Low Cholesterol
Activity: As tolerated
Driving Restrictions: As prior to admission
Activity Restrictions/Additional Instructions:
Please follow-up with infectious disease in the office to receive postsplenectomy vaccinations.
Please abstain from drinking alcohol.
Follow-up with your PCP in 1 week, vascular surgery in 2 weeks, and GI in the office as directed.
Referrals:
Amish Jolley MD [Family Provider, Family Practice] - in one week
Iban Xie MD [Active, Gastroenterology]
Referral Note: Call office to schedule follow-up in 2-3 months
Savannah Devi MD [Active, Infectious Diseases] - in one to two weeks
Prescriptions:
New
sennosides-docusate sodium [Senna Plus] 8.6-50 mg Tablet
2 tab-cap PO BID Qty: 60 0RF
Rx Instructions:
Hold for loose stools
oxycodone 5 mg Tablet
5 mg PO Q4HPRN PRN (Reason: moderate pain) Qty: 20 0RF
tamsulosin 0.4 mg Capsule
0.4 mg PO DAILY Qty: 30 0RF
Continued
aspirin 81 mg Tablet,Delayed Release (Dr/Ec)
81 mg PO DAILY Qty: 30 0RF
clopidogrel 75 mg Tablet
75 mg PO DAILY Qty: 90 0RF
atorvastatin
80 mg DAILY
valsartan
DAILY
amlodipine 10 mg Tablet
10 mg PO DAILY
Discontinued
potassium chloride 10 mEq Tablet Extended Release
80 meq PO DAILY
Discharge Orders:
Discharge Patient (As Directed); Ordered 05/17/25
Ordered By: Isidro Lopez
Discharge Date and Time
Discharge Date/Time: 05/17/25 16:00
Print Language: IRISH
[2025-05-17 15:04] VITALS: BP 155/86
--- NOTE | 2025-05-17 15:56 | W.PN.UPDATE ---
Update Note
Progress Note Update
Seen and evaluated now. I reviewed CT scan images earlier today. Patient notes his abdomen feels better. Left arm puncture site is flat no hematoma. Hand is pink and warm. Abdomen is soft, nondistended, nontender. I discussed CT scan findings
with him. Discussed that I reviewed the images. To my interpretation the pseudoaneurysm does not appear to perfuse anymore. Coils are successful in embolizing the splenic artery. There is some splenic function based on perfusion to the spleen.
However agree with postsplenectomy vaccinations just in case. Discussed this all with him. Okay for discharge from a vascular perspective.
== END 2025-05-17 16:00 | disposition home or self-care (01) | DRG 270 ==
LOC: 2 NORTH 22:02
PROVIDERS: Internal Medicine; Surgery Vascular Surgery; ADMITTING PHYSICIAN Hospitalist; ATTENDING PHYSICIAN Family Medicine; CONSULT PHYSICIAN Internal Medicine; CONSULT PHYSICIAN Surgery; EMERGENCY PHYSICIAN Emergency Medicine; FAMILY PHYSICIAN Family Medicine
PROC: 04V43DZ Restriction of Splenic Artery with Intraluminal Device, Percutaneous Approach (ICD-10-PCS; 2025-05-14)
DX: I72.8 Aneurysm of other specified arteries (principal); K85.81 Other acute pancreatitis with uninfected necrosis; E87.1 Hypo-osmolality and hyponatremia; K86.3 Pseudocyst of pancreas; J90 Pleural effusion, not elsewhere classified; E87.20 Acidosis, unspecified; T80.818A Extravasation of other vesicant agent, initial encounter; Z86.79 Personal history of other diseases of the circulatory system; N18.2 Chronic kidney disease, stage 2 (mild); I12.9 Hypertensive chronic kidney disease with stage 1 through stage 4 chronic kidney disease, or unspecified chronic kidney disease; I16.0 Hypertensive urgency; F10.10 Alcohol abuse, uncomplicated; Z87.891 Personal history of nicotine dependence; E78.00 Pure hypercholesterolemia, unspecified; Z88.0 Allergy status to penicillin; Z79.82 Long term (current) use of aspirin; Z79.02 Long term (current) use of antithrombotics/antiplatelets; Z79.899 Other long term (current) drug therapy; R16.1 Splenomegaly, not elsewhere classified
CPT/HCPCS: 36245; 37242; 74174; 74177; 75726; 76700; 80048; 80053; 80061; 82077; 82248; 82805; 83605; 83615; 83690; 83735; 84100; 84439; 84443; 84484; 85025; 85027; 85045; 85610; 85730; 93005; 96361; 96374; 96375; 97162; 99284; C1769; C1894; Q9967

== ENCOUNTER → 2025-07-21 07:25 | Outpatient (REF) | payer OTHER, SELFPAY | LOC: MRI 07:25 | PROVIDERS: ATTENDING PHYSICIAN Internal Medicine Gastroenterology; FAMILY PHYSICIAN Family Medicine | DX: R10.9 Unspecified abdominal pain (principal) | CPT/HCPCS: 74183; A9575 ==